=== PATIENT | female | born 1995 | race Caucasian/White ===

== ENCOUNTER → 2019-10-02 | Outpatient (CLI) | payer OTHER ==
--- NOTE | 2019-10-02 12:45 | US ---
EXAMINATION TYPE: Transabdominal DATE OF EXAM: 10/02/2019 12:15 PM COMPARISON: NONE CLINICAL HISTORY: Z36 CONFIRM DATES. Confirm dates, pt has no complaints at this time EXAM PERFORMED: Transabdominal (TA) EXAM MEASUREMENTS: GESTATIONAL AGE / DATING Physician Established: (9 weeks/5 days) EDC: 05/01/2020 Dates by LMP: (9 weeks/5 days) EDC: 05/01/2020 Dates by First Scan: No prior Dates by Current Scan for: (7 weeks/4 days) EDC: 05/16/2020 MATERNAL ANATOMY Uterus: 9.6 x 4.9 x 7.1 cm Right Ovary: 2.7 x 1.7 x 2.6 cm Left Ovary: 2.4 x 1.5 x 2.3 cm Post CDS / Adnexa: wnl Presence of free fluid: No Presence of corpus luteal cyst: Left Ovary= 1.7 x 1.1 x 1.7 cm GESTATION / SURVEY CRL: 1.3 cm (7 weeks/4 days) Yolk Sac (normal less than 6mm): Not visualized No heart tones detected IUP: Demise Single gestation with no heart tones detected consistent with probable demise Results called to Dr. Richardson at time of exam IMPRESSION: Findings compatible with demise as noted above. Correlate with serial beta hCG and/or ultrasoun d.
== END | disposition home or self-care (01) ==
LOC: RADUSWWP 11:58
PROVIDERS: ATTEND Obstetrics & Gynecology
DX: Z36.9 Encounter for antenatal screening, unspecified (principal)
CPT/HCPCS: 76801

== ENCOUNTER 2019-10-05 02:12 | Emergency (ER) | payer OTHER ==
[2019-10-05 02:27] VITALS: RESP 16; TEMP 98.6
[2019-10-05] MEDS ORDERED: ONDANSETRON 4 MG/2 ML VIAL IVP STA (02:47)
[2019-10-05] MEDS ORDERED: LORazepam 2 MG/ML INJ IV STA (02:47)
[2019-10-05] MEDS ORDERED: HYDROmorphone 0.5 MG/0.5 ML SYRINGE IVP STA ×2 (02:47→03:07)
[2019-10-05] MEDS ORDERED: SODIUM CHLORIDE 0.9% 1,000 ML IV ONE (02:47)
[2019-10-05 02:54] LABS: Basophils # (A) 0.1 k/uL (0-0.2); Basophils % (A) 0 %; Eosinophils # (A) 0.2 k/uL (0-0.7); Eosinophils % (A) 1 %; HCT 36.5 % (34.0-46.0); HGB 11.6 gm/dL (11.4-16.0); Lymphocytes # (A) 2.2 k/uL (1.0-4.8); Lymphocytes % (A) 15 %; MCH 30.2 pg (25.0-35.0); MCHC 31.8 g/dL (31.0-37.0); MCV 94.9 fL (80.0-100.0); Monocytes # (A) 0.8 k/uL (0-1.0); Monocytes % (A) 6 %; Neutrophils # (A) 11.2 k/uL (1.3-7.7); Neutrophils % (A) 76 %; Platelet Count 211 k/uL (150-450); RBC 3.84 m/uL (3.80-5.40); RDW 13.5 % (11.5-15.5); WBC 14.7 k/uL (3.8-10.6)
[2019-10-05 03:02] LABS: INR 0.9 (<1.2); Partial Thromboplastin Time 22.6 sec (22.0-30.0); Prothrombin Time 9.6 sec (9.0-12.0)
[2019-10-05 03:03] LABS: ALT 24 U/L (4-34); AST 26 U/L (14-36); African American GFR (CKD) >90 (>60 ml/min/1.73 sqM); Albumin 4.5 g/dL (3.5-5.0); Alkaline Phosphatase 43 U/L (38-126); Anion Gap 10 mmol/L; Blood Urea Nitrogen 14 mg/dL (7-17); Calcium 9.8 mg/dL (8.4-10.2); Carbon Dioxide 23 mmol/L (22-30); Chloride 105 mmol/L (98-107); Glucose 94 mg/dL (74-99); Non-African American GFR(CKD) >90 (>60 ml/min/1.73 sqM); Potassium 3.9 mmol/L (3.5-5.1); Sodium 138 mmol/L (137-145); Total Bilirubin <0.1 mg/dL (0.2-1.3); Total Protein 7.6 g/dL (6.3-8.2)
[2019-10-05] MEDS ORDERED: KETOROLAC 30 MG/ML 1 ML VIAL IVP STA (03:07)
--- NOTE | 2019-10-05 03:45 | ED ---
General Adult HPI - General Source: patient Mode of arrival: ambulatory Limitations: no limitations <Vivian Hazel - Last Filed: 10/05/19 04:29> <Mekhi Jones - Last Filed: 10/05/19 04:38> - General Chief complaint: Vaginal Bleeding Stated complaint: 7wks Miscarriage Time Seen by Provider: 10/05/19 02:27 - History of Present Illness Initial comments: 24-year-old female patient presents to the emergency department today for evaluation of pelvic pain and heavy vaginal bleeding. Patient states that she had ultrasound to evaluate her on Monday, she would've been around 9 weeks gestation, ultrasound measured demise at 7 weeks 4 days. Patient states her hCG at that time was around 7000. Patient is G2 with one elective at age 18. Patient states that she's been having some mild vaginal bleeding since her ultrasound. States that this evening the bleeding became much heavier, she soaked through 3 pads in 1 hour. States she is passing large clots. States that her pain became severe, radiating through to her back. Patient is also reporting some dizziness. Denies any urinary symptoms. Denies any nausea or vomiting. Patient denies any recent rash, shortness breath, chest pain, nausea, vomiting, diarrhea, constipation, numbness, tingling, dysuria, urinary urgency, urinary frequency, headache, visual changes, or any other complaints. (Vivian Hazel) - Related Data Allergies Allergy/AdvReac Type Severity Reaction Status Date / Time No Known Allergies Allergy Verified 10/05/19 02:26 Review of Systems ROS Other: All systems not noted in ROS Statement are negative. <Vivian Hazel - Last Filed: 10/05/19 04:29> ROS Other: All systems not noted in ROS Statement are negative. <Mekhi Jones - Last Filed: 10/05/19 04:38> ROS Statement: Those systems with pertinent positive or pertinent negative responses have been documented in the HPI. Past Medical History Past Medical History: No Reported History History of Any Multi-Drug Resistant Organisms: None Reported Past Surgical History: No Surgical Hx Reported Past Psychological History: No Psychological Hx Reported Smoking Status: Current every day smoker Past Alcohol Use History: None Reported Past Drug Use History: None Reported <Vivian Hazel - Last Filed: 10/05/19 04:29> General Exam Limitations: no limitations General appearance: alert, in distress (Related to pain), other (Physical well- developed, well-nourished adult female patient in no acute distress. Vital signs upon presentation are temperature 98.6F, pulse 68, respirations 16, blood pressure 133/86, pulse ox 100% on room air.) Respiratory exam: Present: normal lung sounds bilaterally. Absent: respiratory distress, wheezes, rales, rhonchi, stridor Cardiovascular Exam: Present: regular rate, normal rhythm, normal heart sounds. Absent: systolic murmur, diastolic murmur, rubs, gallop, clicks GI/Abdominal exam: Present: soft, tenderness (Lower abdominal), normal bowel sounds. Absent: distended, guarding, rebound, rigid External exam: Present: normal external exam Speculum exam: Present: vaginal bleeding (moderate vaginal bleeding), tissue (noted in the cervical os, some tissue removed. ) Neurological exam: Present: alert, oriented X3, CN II-XII intact Psychiatric exam: Present: normal affect, normal mood Skin exam: Present: warm, dry, intact, normal color. Absent: rash <Vivian Hazel - Last Filed: 10/05/19 04:29> Course Vital Signs 10/05/19 02:23 Temperature 98.6 F Pulse Rate 68 Respiratory 16 Rate Blood Pressure 133/86 O2 Sat by Pulse 100 Oximetry Medical Decision Making - Lab Data Result diagrams: 10/05/19 02:46 10/05/19 02:46 <Vivian Hazel - Last Filed: 10/05/19 04:29> - Lab Data Result diagrams: 10/05/19 02:46 10/05/19 02:46 <Mekhi Jones - Last Filed: 10/05/19 04:38> - Medical Decision Making 24-year-old female patient presented to the emergency department today for evaluation of heavy vaginal bleeding and severe abdominal pain. She is G2 with elective at age 18. Physical examination did reveal some suprapubic abdominal tenderness. Upon initial evaluation patient was quite uncomfortable. She was given IV fluids, Dilaudid, and Ativan. Once patient was resting more comfortably pelvic examination was performed, with initial insertion of the speculum there was release of a large amount of bright red blood. Once cleared there was tissue noted protruding from the cervical os. This was removed. There is additional tissue noted in the cervical os, removal was unsuccessful. Patient tolerated the procedure well. Tissue sample will be sent. At this time patient is resting comfortably, rating her pain at a 2/10. Bleeding has diminished. Dr. Turner was consulted by my attending Dr. Jones. Patient will be discharged home with pain medication. She is instructed to contact Dr. Otoole on Monday for further instruction. She does have an ultrasound scheduled for 10/10/19. We did discuss return parameters in detail including heavy bleeding and increased pain. She verbalizes understanding and agrees with this plan. (Vivian Hazel) I saw this patient in conjunction with the physician automotive service assistant. I performed independent history and physical exam. Agree with case management. (Mekhi Jones) - Lab Data Lab Results 10/05/19 10/05/19 10/05/19 Range/Units 02:46 02:46 02:46 WBC 14.7 H (3.8-10.6) k/uL RBC 3.84 (3.80-5.40) m/uL Hgb 11.6 (11.4-16.0) gm/dL Hct 36.5 (34.0-46.0) % MCV 94.9 (80.0-100.0) fL MCH 30.2 (25.0-35.0) pg MCHC 31.8 (31.0-37.0) g/dL RDW 13.5 (11.5-15.5) % Plt Count 211 (150-450) k/uL Neutrophils % 76 % Lymphocytes % 15 % Monocytes % 6 % Eosinophils % 1 % Basophils % 0 % Neutrophils # 11.2 H (1.3-7.7) k/uL Lymphocytes # 2.2 (1.0-4.8) k/uL Monocytes # 0.8 (0-1.0) k/uL Eosinophils # 0.2 (0-0.7) k/uL Basophils # 0.1 (0-0.2) k/uL PT 9.6 (9.0-12.0) sec INR 0.9 (<1.2) APTT 22.6 (22.0-30.0) sec Sodium 138 (137-145) mmol/L Potassium 3.9 (3.5-5.1) mmol/L Chloride 105 (98-107) mmol/L Carbon Dioxide 23 (22-30) mmol/L Anion Gap 10 mmol/L BUN 14 (7-17) mg/dL Creatinine 0.75 (0.52-1.04) mg/dL Est GFR (CKD-EPI)AfAm >90 (>60 ml/min/1.73 sqM) Est GFR (CKD-EPI)NonAf >90 (>60 ml/min/1.73 sqM) Glucose 94 (74-99) mg/dL Calcium 9.8 (8.4-10.2) mg/dL Total Bilirubin <0.1 L (0.2-1.3) mg/dL AST 26 (14-36) U/L ALT 24 (4-34) U/L Alkaline Phosphatase 43 (38-126) U/L Total Protein 7.6 (6.3-8.2) g/dL Albumin 4.5 (3.5-5.0) g/dL HCG, Quant mIU/mL Blood Type Blood Type Recheck Bld Type Recheck Status 10/05/19 10/05/19 Range/Units 02:46 02:46 WBC (3.8-10.6) k/uL RBC (3.80-5.40) m/uL Hgb (11.4-16.0) gm/dL Hct (34.0-46.0) % MCV (80.0-100.0) fL MCH (25.0-35.0) pg MCHC (31.0-37.0) g/dL RDW (11.5-15.5) % Plt Count (150-450) k/uL Neutrophils % % Lymphocytes % % Monocytes % % Eosinophils % % Basophils % % Neutrophils # (1.3-7.7) k/uL Lymphocytes # (1.0-4.8) k/uL Monocytes # (0-1.0) k/uL Eosinophils # (0-0.7) k/uL Basophils # (0-0.2) k/uL PT (9.0-12.0) sec INR (<1.2) APTT (22.0-30.0) sec Sodium (137-145) mmol/L Potassium (3.5-5.1) mmol/L Chloride (98-107) mmol/L Carbon Dioxide (22-30) mmol/L Anion Gap mmol/L BUN (7-17) mg/dL Creatinine (0.52-1.04) mg/dL Est GFR (CKD-EPI)AfAm (>60 ml/min/1.73 sqM) Est GFR (CKD-EPI)NonAf (>60 ml/min/1.73 sqM) Glucose (74-99) mg/dL Calcium (8.4-10.2) mg/dL Total Bilirubin (0.2-1.3) mg/dL AST (14-36) U/L ALT (4-34) U/L Alkaline Phosphatase (38-126) U/L Total Protein (6.3-8.2) g/dL Albumin (3.5-5.0) g/dL HCG, Quant 5362.1 mIU/mL Blood Type O Positive Blood Type Recheck No Previous Record Bld Type Recheck Status [facility] ONLY Disposition Is patient prescribed a controlled substance at d/c from ED?: No Time of Disposition: 04:33 <Vivian Hazel - Last Filed: 10/05/19 04:29> <Mekhi Jones - Last Filed: 10/05/19 04:38> Clinical Impression: Miscarriage Disposition: HOME SELF-CARE Condition: Good Instructions (If sedation given, give patient instructions): Miscarriage (ED) Additional Instructions: Increase fluids. Rest. Take medications as directed. Follow up with Dr. Otoole for further evaluation as soon as possible. Return for increased bleeding or severe pain. Return for any other new, worsening, or concerning symptoms. Referrals: Darling Otoole DO [Doctor of Osteopathic Medicine] - 1-2 days
[2019-10-05] MEDS ORDERED: ACET/COD 300 MG/30 MG STARTER PACK 6 TAB BTL PO STA (04:35)
[2019-10-05] MEDS ORDERED: IBUPROFEN 600 MG STARTER PACK 4 TAB BTL PO STA (04:36)
[2019-10-05 04:42] VITALS: BP 114/64; PULSE 71
--- NOTE | 2019-10-08 05:21 | CDI ---
Dear Vivian Hazel [facility]-: Please do addendum clarification whether Dilation and Curettage was performed in this visit, if yes please provide procedure note. Thank You, Bradford Lopez, Internet Marketing Strategist. If you have any questions, please contact Protection Mgr at [phone] [facility]
== END 2019-10-05 04:52 | disposition home or self-care (01) ==
LOC: EC 02:12
DX: O03.9 Complete or unspecified spontaneous abortion without complication (principal); O99.331 Smoking (tobacco) complicating pregnancy, first trimester; F17.200 Nicotine dependence, unspecified, uncomplicated; Z87.59 Personal history of other complications of pregnancy, childbirth and the puerperium; Z3A.01 Less than 8 weeks gestation of pregnancy
CPT/HCPCS: 99284; 96374; 96375 ×3; 96361; 36415; 86900; 86901; 88305; 80053; 85025; 85610; 85730; 84702; J2060; J2405; J1885; J1170

== ENCOUNTER → 2019-10-11 | Outpatient (CLI) | payer OTHER ==
--- NOTE | 2019-10-11 09:19 | US ---
EXAMINATION TYPE: Transabdominal DATE OF EXAM: 10/11/2019 9:01 AM COMPARISON: US 10/02/2019 CLINICAL HISTORY: Z36 Previous abnormal ultra sound. demise seen on previous, patient states bl eeding stopped 3 days ago. EXAM PERFORMED: Transabdominal (TA) EXAM MEASUREMENTS: GESTATIONAL AGE / DATING Dates by First Scan: demise Dates by Current Scan for: No IUP seen at this time MATERNAL ANATOMY Uterus: 6.2 x 4.2 x 4.6cm, anteverted, endometrium wnl Right Ovary: 2.5 x 1.5 x 1.7cm Left Ovary: 2.4 x 1.2 x 1.6cm Post CDS / Adnexa: wnl Presence of free fluid: no Endometrium: 0.7 cm GESTATION / SURVEY IUP: No IUP seen at this time Date of LMP: 07/28/2019 Beta HcG (if available): Not available at time of exam IMPRESSION: No intrauterine seen. Endometrial thickness is now within normal limits. No sonographic con cern for retained products of conception.
== END | disposition home or self-care (01) ==
LOC: RADUSWWP 08:44
PROVIDERS: ATTEND Obstetrics & Gynecology
DX: Z36.2 Encounter for other antenatal screening follow-up (principal)
CPT/HCPCS: 76801

== ENCOUNTER 2019-11-05 05:34 | Emergency (ER) | payer OTHER ==
[2019-11-05 05:41] VITALS: BP 146/79; PULSE 60; RESP 18; TEMP 97.7
[2019-11-05] MEDS ORDERED: SODIUM CHLORIDE 0.9% 1,000 ML IV STA (05:44)
[2019-11-05 06:02] LABS: Appearance,Urine Turbid (Clear); Bacteria,Urine Many /hpf; Bilirubin,Urine Negative (Negative); Blood,Urine Small (Negative); Color,Urine Yellow; Glucose,Urine (UA) Negative (Negative); Ketones,Urine Negative (Negative); Leukocyte Esterase,Urine Small (Negative); Mucus,Urine Few /hpf; Nitrite,Urine Negative (Negative); PH, Urine 5.5 (5.0-8.0); Protein,Urine 1+ (Negative); RBC,Urine 16 /hpf (0-5); Specific Gravity,Urine 1.031 (1.001-1.035); Squamous Epithelial Cell,Urine 23 /hpf (0-4); Urobilinogen,Urine <2.0 mg/dL (<2.0); WBC,Urine 22 /hpf (0-5)
[2019-11-05] MEDS ORDERED: MORPHINE SULFATE 4 MG/ML SYRINGE IVP STA (06:04)
[2019-11-05] MEDS ORDERED: ONDANSETRON 4 MG/2 ML VIAL IVP STA (06:04)
[2019-11-05 06:18] LABS: Basophils # (A) 0.1 k/uL (0-0.2); Basophils % (A) 1 %; Eosinophils # (A) 0.3 k/uL (0-0.7); Eosinophils % (A) 3 %; HCT 35.7 % (34.0-46.0); HGB 11.7 gm/dL (11.4-16.0); Lymphocytes # (A) 2.6 k/uL (1.0-4.8); Lymphocytes % (A) 32 %; MCH 30.5 pg (25.0-35.0); MCHC 32.7 g/dL (31.0-37.0); MCV 93.4 fL (80.0-100.0); Mean Platelet Volume 9.3; Monocytes # (A) 0.5 k/uL (0-1.0); Monocytes % (A) 6 %; Neutrophils # (A) 4.6 k/uL (1.3-7.7); Neutrophils % (A) 55 %; Platelet Count 179 k/uL (150-450); RBC 3.83 m/uL (3.80-5.40); RDW 13.6 % (11.5-15.5); WBC 8.3 k/uL (3.8-10.6)
--- NOTE | 2019-11-05 06:28 | ED ---
Abdominal Pain HPI - General Chief Complaint: Abdominal Pain Stated Complaint: Pelvic Cramping Time Seen by Provider: 11/05/19 05:44 Source: patient Mode of arrival: ambulatory Limitations: no limitations - History of Present Illness Initial Comments: Cleopatra is a 24-year-old female presents the ER today for evaluation of right lower quadrant abdominal pain and dysuria. Patient reports symptoms woke her from sleep at a been persistent for a number of hours. Patient reports a stabbing pain in her right lower pelvis with associated nausea but no vomiting. No change in bowel habits. No recent illness. 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 Patient does report a history of ovarian cysts but reports this pain is different. She denies any history of kidney stones or known family history of kidney stones. She has not had a menstrual cycle since her miscarriage. - Related Data Previous Rx's Medication Instructions Recorded Ondansetron [Zofran ODT] 4 mg PO Q8HR #12 tab 11/05/19 Tamsulosin [Flomax] 0.4 mg PO DAILY #7 cap 11/05/19 Allergies Allergy/AdvReac Type Severity Reaction Status Date / Time No Known Allergies Allergy Verified 10/05/19 02:26 Review of Systems ROS Statement: Those systems with pertinent positive or pertinent negative responses have been documented in the HPI. ROS Other: All systems not noted in ROS Statement are negative. Past Medical History Past Medical History: No Reported History Additional Past Medical History / Comment(s): miscarrige 2019. History of Any Multi-Drug Resistant Organisms: None Reported Past Surgical History: No Surgical Hx Reported Past Psychological History: No Psychological Hx Reported Smoking Status: Never smoker Past Alcohol Use History: None Reported Past Drug Use History: None Reported General Exam - General Exam Comments Initial Comments: Physical Exam GENERAL: Patient is well-developed and well-nourished. Patient is nontoxic and well- hydrated and is in no distress. HENT: Normocephalic, Atraumatic. EYES: PERRL, EOMI PULMONARY: Unlabored respirations. No audible rales rhonchi or wheezing was noted. CARDIOVASCULAR: There is a regular rate and rhythm without any murmurs gallops or rubs. ABDOMEN: Soft Mild tenderness to palpation right lower quadrant no tenderness to percussion of the right flank SKIN: Skin is clear with no lesions or rashes and otherwise unremarkable. : Deferred NEUROLOGIC: Patient is alert and oriented x3. Moving all extremities spontaneously MUSCULOSKELETAL: Normal extremities with adequate strength and full range of motion. No lower extremity swelling or edema. No calf tenderness. PSYCHIATRIC: Normal psychiatric evaluation. Limitations: no limitations Course Vital Signs 11/05/19 05:35 Temperature 97.7 F Pulse Rate 60 Respiratory 18 Rate Blood Pressure 146/79 O2 Sat by Pulse 100 Oximetry Medical Decision Making - Medical Decision Making The patient was seen and evaluated, history is obtained from the patient Emergent bedside ultrasound was performed and revealed no free fluid in the abdomen which would be concerning for a ruptured ectopic given the patient's history of recent miscarriage Labs were obtained patient was given morphine and Zofran with minimal improvement in her pain Labs resulted with elevated BUN and creatinine concerning for likely instructive kidney stone Computed tomography scan was ordered Toradol was ordered She was reevaluated and was sleeping comfortably after Toradol reported complete resolution of her pain, computed tomography scan did result with a small right UVJ stone, patient was comfortable with discharge home and supportive care. - Lab Data Result diagrams: 11/05/19 05:58 11/05/19 05:58 Lab Results 11/05/19 11/05/19 11/05/19 Range/Units 05:47 05:58 05:58 WBC 8.3 (3.8-10.6) k/uL RBC 3.83 (3.80-5.40) m/uL Hgb 11.7 (11.4-16.0) gm/dL Hct 35.7 (34.0-46.0) % MCV 93.4 (80.0-100.0) fL MCH 30.5 (25.0-35.0) pg MCHC 32.7 (31.0-37.0) g/dL RDW 13.6 (11.5-15.5) % Plt Count 179 (150-450) k/uL Neutrophils % 55 % Lymphocytes % 32 % Monocytes % 6 % Eosinophils % 3 % Basophils % 1 % Neutrophils # 4.6 (1.3-7.7) k/uL Lymphocytes # 2.6 (1.0-4.8) k/uL Monocytes # 0.5 (0-1.0) k/uL Eosinophils # 0.3 (0-0.7) k/uL Basophils # 0.1 (0-0.2) k/uL Sodium 138 (137-145) mmol/L Potassium 3.7 (3.5-5.1) mmol/L Chloride 103 (98-107) mmol/L Carbon Dioxide 24 (22-30) mmol/L Anion Gap 11 mmol/L BUN 18 H (7-17) mg/dL Creatinine 1.08 H (0.52-1.04) mg/dL Est GFR (CKD-EPI)AfAm 83 (>60 ml/min/1.73 sqM) Est GFR (CKD-EPI)NonAf 72 (>60 ml/min/1.73 sqM) Glucose 98 (74-99) mg/dL Calcium 10.0 (8.4-10.2) mg/dL Total Bilirubin 0.3 (0.2-1.3) mg/dL AST 26 (14-36) U/L ALT 23 (4-34) U/L Alkaline Phosphatase 53 (38-126) U/L C-Reactive Protein <5.0 (<10.0) mg/L Total Protein 7.8 (6.3-8.2) g/dL Albumin 4.7 (3.5-5.0) g/dL HCG, Quant <2.4 mIU/mL Urine Color Yellow Urine Appearance Turbid H (Clear) Urine pH 5.5 (5.0-8.0) Ur Specific [place] 1.031 (1.001-1.035) Urine Protein 1+ H (Negative) Urine Glucose (UA) Negative (Negative) Urine Ketones Negative (Negative) Urine Blood Small H (Negative) Urine Nitrite Negative (Negative) Urine Bilirubin Negative (Negative) Urine Urobilinogen <2.0 (<2.0) mg/dL Ur Leukocyte Esterase Small H (Negative) Urine RBC 16 H (0-5) /hpf Urine WBC 22 H (0-5) /hpf Ur Squamous Epith Cells 23 H (0-4) /hpf Urine Bacteria Many H (None) /hpf Urine Mucus Few H (None) /hpf Disposition Clinical Impression: Flank pain Disposition: HOME SELF-CARE Condition: Stable Additional Instructions: Follow up with your primary doctor within 2-3 days. Follow up with a Urologist this week (we will give you a list of urologists, but make sure they accept your insurance). ?Please call as soon as possible for an appointment. 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 Use Motrin (also called Ibuprofen or Advil) 400-800 mg every 6 hours as needed for pain. Take this with food, if you have any stomach discomfort while taking Motrin, you can use TUMS to help. Drink plenty of fluids, avoid caffeine & alcohol. Please continue taking your home medications as directed. Do not use alcohol when taking any medication (especially antibiotics, tylenol or other pain medication) unless you check with the doctor or pharmacist. Any worsening pain, fever, chills, difficulty urinating, or any other concerns, please see your doctor immediately or return to Emergency Department right away. Prescriptions: Tamsulosin [Flomax] 0.4 mg PO DAILY #7 cap Ondansetron [Zofran ODT] 4 mg PO Q8HR #12 tab Is patient prescribed a controlled substance at d/c from ED?: No Referrals: Fany Saenz MD [Primary Care Provider] - 1-2 days
[2019-11-05 06:29] LABS: ALT 23 U/L (4-34); AST 26 U/L (14-36); African American GFR (CKD) 83 (>60 ml/min/1.73 sqM); Albumin 4.7 g/dL (3.5-5.0); Alkaline Phosphatase 53 U/L (38-126); Anion Gap 11 mmol/L; Blood Urea Nitrogen 18 mg/dL (7-17); C Reactive Protein <5.0 mg/L (<10.0); Carbon Dioxide 24 mmol/L (22-30); Chloride 103 mmol/L (98-107); Glucose 98 mg/dL (74-99); Non-African American GFR(CKD) 72 (>60 ml/min/1.73 sqM); Potassium 3.7 mmol/L (3.5-5.1); Sodium 138 mmol/L (137-145); Total Bilirubin 0.3 mg/dL (0.2-1.3); Total Protein 7.8 g/dL (6.3-8.2)
[2019-11-05 06:43] LABS: HCG,Quantitative Serum <2.4 mIU/mL
[2019-11-05] MEDS ORDERED: KETOROLAC 30 MG/ML 1 ML VIAL IVP STA (07:04)
[2019-11-05] MEDS ORDERED: ACET/COD 300 MG/30 MG STARTER PACK 6 TAB BTL PO STA (07:22)
--- NOTE | 2019-11-05 07:26 | CT ---
EXAMINATION TYPE: CT renal stones wo con DATE OF EXAM: 11/05/2019 COMPARISON: None INDICATION: right flank pain DLP: 344.4 mGycm, Automated exposure control for dose reduction was used. CONTRAST: 0 mL of Isovue 300. Study performed without Oral Contrast TECHNIQUE: Axial images were obtained from above the diaphragm to the pubic rami in the axial plane a t 5 mm thick sections. Reconstructed images are reviewed on the computer in the coronal plane. FINDINGS: Limited CT sections are obtained the lung bases. The lung bases are clear. CT ABDOMEN: Liver: Normal Spleen: Normal Pancreas: Normal Adrenal glands: The adrenal glands are normal. Gallbladder: Normal Kidneys: No masses are evident. There is mild right hydronephrosis. No cysts are present. Study is w ithout intravenous contrast causing limitation. There is a punctate renal stone on the left inferior pole measuring 0.3 cm. Within the proximal right hemipelvis there is a 0.6 cm area of increased density. This appears somewh at tubular and could be contrast within the appendix. There is a punctate high density structure near the inferior right lateral decompressed urinary bladder. Distal ureteral stone may be present. This would measure 0.3 cm. Series 202 image 44. A definitive renal or ureteral stone is not otherwise iden tified. Aorta: Normal Inferior vena cava: Normal. CT PELVIS: Loops of bowel within the abdomen and pelvis are normal. Study is without oral contrast limiting bowel evaluation. Appendix: Normal as visualized. The insertion of the cecum is not clearly identified. This extends to wards the midline and posterior. Adjacent inflammatory changes are dilatation is not identified. As d iscussed above there is some tubular increased density felt to be some contrast within the appendix. Calcification and appendicolith could be considered. Urinary bladder: Decompressed and cannot be evaluated Genitourinary structures: Uterus is normal. Adnexal regions appear unremarkable. No free fluid is wit hin the pelvis. Osseous structures: No suspicious lytic or sclerotic lesions. IMPRESSIONS: 1. There may be a punctate 0.3 cm calcification near the expected region of the insertion of the rig ht ureter on the bladder at the ureterovesical junction. 2. Mild hydronephrosis and proximal right hydroureter. 3. Suspected contrast or appendicolith within the midline appendix. 4. Nonobstructing 0.3 cm inferior pole left renal stone.
== END 2019-11-05 07:49 | disposition home or self-care (01) ==
LOC: EC 05:34
DX: R10.2 Pelvic and perineal pain (principal); R79.89 Other specified abnormal findings of blood chemistry; R30.0 Dysuria; R11.0 Nausea; Z87.59 Personal history of other complications of pregnancy, childbirth and the puerperium; Z87.42 Personal history of other diseases of the female genital tract
CPT/HCPCS: 36415; 80053; 85025; 86140; 81001; 84702; 87086; 74150; 99284; 96374; 96375 ×2; 96361; J2270; J2405; J1885

== ENCOUNTER → 2020-03-02 | Outpatient (CLI) | payer OTHER ==
--- NOTE | 2020-03-03 06:56 | US ---
EXAMINATION TYPE: US pelvic complete DATE OF EXAM: 03/02/2020 COMPARISON: 10/11/2019 CLINICAL HISTORY: N97.9 Female infertility. TECHNIQUE: Transabdominal (TA). Date of LMP: October 2019 EXAM MEASUREMENTS: Uterus: 7.4 x 2.5 x 3.9 cm Endometrial Stripe: 1.0 cm Right Ovary: 3.3 x 3.5 x 1.2 cm Left Ovary: 3.2 x 2.1x 1.2 cm 1. Uterus: Anteverted wnl 2. Endometrium: measures 1.0 cm, no cycles since October 2019 3. Right Ovary: wnl 4. Left Ovary: wnl 5. Bilateral Adnexa: wnl 6. Posterior cul-de-sac: No free fluid IMPRESSION: No distinct abnormality appreciated.
== END | disposition home or self-care (01) ==
LOC: RADUSWWP 16:27
PROVIDERS: ATTEND Internal Medicine
DX: N97.9 Female infertility, unspecified (principal)
CPT/HCPCS: 76856

== ENCOUNTER → 2020-05-18 | Outpatient (CLI) | payer OTHER ==
--- NOTE | 2020-05-19 07:40 | US ---
EXAMINATION TYPE: Transabdominal DATE OF EXAM: 05/18/2020 4:42 PM COMPARISON: NONE CLINICAL HISTORY: Z36 CONFIRM DATES. EXAM PERFORMED: Transabdominal (TA) EXAM MEASUREMENTS: GESTATIONAL AGE / DATING Physician Established: Not yet established Dates by LMP: Does not correlate Dates by First Scan: No previous this is first scan Dates by Current Scan for: (11 weeks/1 days) EDC: 12/12/2020 MATERNAL ANATOMY Uterus: 11.5 x 6.3 x 7.5 cm Right Ovary: 2.5 x 1.1 x 1.0 cm Left Ovary: 1.8 x 2.0 x 0.9 cm Post CDS / Adnexa: wnl Presence of free fluid: No Presence of corpus luteal cyst: wnl Presence of subchorionic bleed: no GESTATION / SURVEY CRL: 4.2 cm (11 weeks/1 days) Yolk Sac (normal less than 6mm): 3 mm Heart Rate: 170 bpm Rhythm: Normal IUP: Viable IUP Date of LMP: Does not correlate Beta HcG (if available): Not available at this time IMPRESSION: Viable IUP with an MILTON of 12/06/2020 by this exam
== END | disposition home or self-care (01) ==
LOC: RADUSWWP 16:25
PROVIDERS: ATTEND Obstetrics & Gynecology
DX: Z36.9 Encounter for antenatal screening, unspecified (principal); Z3A.11 11 weeks gestation of pregnancy
CPT/HCPCS: 76801

== ENCOUNTER 2020-11-11 13:23 | Outpatient (CLI) | payer OTHER ==
[2020-11-11] MEDS ORDERED: ONDANSETRON 4 MG/2 ML VIAL IM STA (14:10)
[2020-11-11] MEDS ORDERED: LACTATED RINGERS 1,000 ML IV SCH (14:15)
[2020-11-11] MEDS ORDERED: ONDANSETRON 4 MG/2 ML VIAL IVP STA (14:43)
[2020-11-11 14:53] LABS: Appearance,Urine Clear (Clear); Bilirubin,Urine Negative (Negative); Blood,Urine Negative (Negative); Color,Urine Yellow; Glucose,Urine (UA) Negative (Negative); Ketones,Urine Negative (Negative); Leukocyte Esterase,Urine Negative (Negative); Nitrite,Urine Negative (Negative); PH, Urine 5.5 (5.0-8.0); Protein,Urine Negative (Negative); Specific Gravity,Urine 1.005 (1.001-1.035); Urobilinogen,Urine <2.0 mg/dL (<2.0)
[2020-11-11 15:16] VITALS: BP 125/74; PULSE 90; RESP 18; TEMP 97.5
--- NOTE | 2020-11-11 16:17 | P.MSEPDOC ---
Presenting Problems - Arrival Data Date of Arrival on Unit: 11/11/20 Time of Arrival on Unit: 13:30 Mode of Transport: Ambulatory - Complaint OB-Reason for Admission/Chief Complaint: Other Comment: nausea/vomitting, pos. covid Medical History - Information : 1 Para: 0 Term: 0 : 0 Abortions: Spontaneous or Elective: 0 Number of Living Children: 0 - Gestational Age Gestational Age by MILTON (wks/days): 36 Weeks and 0 Days Review of Systems - Review of Systems Constitutional: No problems Breast: No problems ENT: No problems Cardiovascular: No problems Respiratory: No problems Gastrointestinal: No problems Genitourinary: No problems Musculoskeletal: No problems Neurological: No problems Skin: No problems Comment: nausea/vomitting Vital Signs - Temperature Temperature: 97.5 F Temperature Source: Temporal Artery Scan - Pulse Right Brachial Pulse Rate: 90 Pulse Assessment Method: Pulse Oximetry - Respirations Respiratory Rate: 18 Oxygen Delivery Method: Room Air O2 Sat by Pulse Oximetry: 97 - Blood Pressure Right Arm Blood Pressure: 125/74 Blood Pressure Mean: 91 Blood Pressure Source: Automatic Cuff Medical Screen Scoring (Pre) - Cervical Exam Dilation: Exam Deferred - Uterine Contractions Frequency: > 5 minutes apart = 1 Duration: > 40 seconds = 2 Intensity: N/A - Maternal Vital Signs Maternal Temperature: N/A Maternal Blood Pressure: N/A Signs of Preeclampsia: N/A Maternal Respirations: N/A - Maternal Trauma Maternal Trauma: N/A - Assessment - Baby A Baseline FHR: 135 Heart Rate - NICHD Category: Category I (Normal) = 0 NST: Reactive - Total Score - Baby A Total Score - Baby A: 3 - Total Score - Baby B Total Score - Baby B: 3 - Total Score - Baby C Total Score - Baby C: 3 - Level of Risk - Baby A Level of Risk - Baby A: Low (0-5) - Level of Risk - Baby B Level of Risk - Baby B: Low (0-5) - Level of Risk - Baby C Level of Risk - Baby C: Low (0-5) Physician Notification (Pre) - Physician Notified Physician Notified Date: 11/11/20 Physician Notified Time: 13:45 New Order Received: Yes - Notification Comment Comment: iv lr, zofran, vag exam, urinalysis Disposition - Disposition OB Disposition: Observe I agree with the RN Medical Screening Exam: Yes Case reviewed; plan agreed upon as documented in EMR&OBIX.: Yes Diagnosis: NAUSEA WITH VOMITING, UNSPECIFIED Additional Diagnoses: COVID-19 infection
== END 2020-11-11 17:00 | disposition home or self-care (01) ==
LOC: FBPOP 13:23
PROVIDERS: ATTEND Obstetrics & Gynecology
DX: O98.513 Other viral diseases complicating pregnancy, third trimester (principal); U07.1 COVID-19; R11.2 Nausea with vomiting, unspecified; Z3A.36 36 weeks gestation of pregnancy
CPT/HCPCS: 59025; 96361; 96374; 81003; G0463; J2405; 96360; 99214

== ENCOUNTER 2020-12-02 18:52 | Inpatient (IN) | payer OTHER ==
[2020-12-02] MEDS: LACTATED RINGERS 1,000 ML IV SCH ×2 (19:20→23:40)
[2020-12-02] MEDS ORDERED: OXYTOCIN 10 UNIT/ML 1 ML VIAL IM PRN (19:23)
[2020-12-02] MEDS ORDERED: TERBUTALINE 1 MG/ML VIAL SQ PRN (19:23)
[2020-12-02] MEDS ORDERED: LIDOCAINE 0.5% (PF) 5 MG/ML (50 ML SDV) SQ PRN (19:23)
[2020-12-02] MEDS ORDERED: CARBOPROST TROMETHAMINE 250 MCG/ML 1 ML AMP IM PRN (19:23)
[2020-12-02] MEDS ORDERED: METHYLERGONOVINE 0.2 MG/ML 1 ML AMP IM PRN (19:23)
[2020-12-02] MEDS ORDERED: BUTORPHANOL 1 MG/ML 1 ML VIAL IV PRN (19:24)
[2020-12-02] MEDS ORDERED: OXYTOCIN 30 UNITS/500 ML NS 30 UNIT in SALINE 1 500ML.BAG IV SCH (19:30)
[2020-12-02 20:14] LABS: Anisocytosis Slight; Basophils % (A) 0 %; Eosinophils % (A) 0 %; HCT 33.4 % (34.0-46.0); HGB 10.9 gm/dL (11.4-16.0); Lymphocytes # (A) 2.4 k/uL (1.0-4.8); Lymphocytes % (A) 18 %; MCH 28.4 pg (25.0-35.0); MCHC 32.5 g/dL (31.0-37.0); MCV 87.3 fL (80.0-100.0); Mean Platelet Volume 11.4; Monocytes # (A) 0.6 k/uL (0-1.0); Monocytes % (A) 5 %; Neutrophils # (A) 9.9 k/uL (1.3-7.7); Neutrophils % (A) 75 %; Platelet Count 189 k/uL (150-450); RBC 3.83 m/uL (3.80-5.40); RDW 18.3 % (11.5-15.5); WBC 13.2 k/uL (3.8-10.6)
--- NOTE | 2020-12-02 20:58 | P.HPOB ---
History of Present Illness H&P Date: 12/02/20 Chief Complaint: Contractions This is a 25-year-old female 3 para 0 with an estimated date of confinement of 12/06/2020, estimated gestational age of 39-3/7 weeks, who presents to labor and delivery for complaints of contractions that began yesterday and became stronger today. course had been essentially uncomplicated up until about 35 weeks when she was diagnosed with COVID-19. She was managed as an outpatient and has recovered. She denies any rupture of membranes. She states baby has been very active. labs: Group B streptococcus-negative One hour Glucola-103 Hepatitis B surface antigen-negative RPR-nonreactive Rubella-immune Blood type-O+ Antibody screen-negative Hemoglobin-11.4 Random glucose-80 Obstetrical history: . History of 1 miscarriage and 1 termination of . Gynecologic history: She does have a history of a Pap smear that showed low- grade in 2019. History of chlamydia approximately 4 years ago. 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 Social history: She is single. She is currently unemployed. Review of Systems Constitutional: Denies chills, Denies fever Eyes: denies blurred vision, denies pain Ears, nose, mouth and throat: Denies headache, Denies sore throat Cardiovascular: Denies chest pain, Denies shortness of breath Respiratory: Denies cough Gastrointestinal: Reports abdominal pain Genitourinary: Reports pelvic pain, Reports Musculoskeletal: Reports low back pain Past Medical History Past Medical History: No Reported History Additional Past Medical History / Comment(s): miscarrige 2019. History of Any Multi-Drug Resistant Organisms: None Reported Past Surgical History: No Surgical Hx Reported Past Anesthesia/Blood Transfusion Reactions: No Reported Reaction Past Psychological History: No Psychological Hx Reported Smoking Status: Never smoker Past Alcohol Use History: None Reported Past Drug Use History: None Reported - Past Family History Mother Family Medical History: No Reported History Medications and Allergies Home Medications Medication Instructions Recorded Confirmed Type Acyclovir 800 mg PO MDD 800 mg 11/11/20 History Pnv,Calcium 72/Iron/Folic Acid 1 each PO DAILY MDD 1 tab 11/11/20 12/02/20 History [ Plus Tablet] Allergies Allergy/AdvReac Type Severity Reaction Status Date / Time No Known Allergies Allergy Verified 12/02/20 19:11 Exam Osteopathic Statement: *. No significant issues noted on an osteopathic structural exam other than those noted in the History and Physical/Consult. Vital Signs Temp Pulse Resp BP Pulse Ox 12/02/20 19:22 98.2 F 70 18 132/82 100 12/02/20 19:00 98.2 F 70 17 132/82 Intake and Output 12/02/20 12/02/20 12/02/20 06:59 14:59 22:59 Other: Weight 72.575 kg HEENT: Within normal limits Heart: Regular rate and rhythm Lungs: Clear to auscultation bilaterally Abdomen: heart tones: Category 1, reactive. Contractions: Every 2-3 minutes. Cervix: 6 cm/90%/-2 station with bulging bag. Extremities: Negative Homans Results Result Diagrams: 12/02/20 20:01 Abnormal Lab Results - Last 24 Hours (Table) 12/02/20 Range/Units 20:01 WBC 13.2 H (3.8-10.6) k/uL Hgb 10.9 L (11.4-16.0) gm/dL Hct 33.4 L (34.0-46.0) % RDW 18.3 H (11.5-15.5) % Neutrophils # 9.9 H (1.3-7.7) k/uL Assessment and Plan (1) 39 weeks gestation of Current Visit: Yes Status: Acute Code(s): Z3A.39 - 39 WEEKS GESTATION OF SNOMED Code(s): 95750746 Plan: Admission for active labor. Expectant management. May have epidural if desired.
[2020-12-02] MEDS ORDERED: ROPIVACAINE 100 MG, fentaNYL (PF). 200 MCG in SODIUM CHLORIDE 0.9% 76 ML EPIDURAL ONE (23:50)
[2020-12-03] MEDS: LACTATED RINGERS 1,000 ML IV SCH (05:41)
[2020-12-03] MEDS ORDERED: diphenhydrAMINE 50 MG/ML 1 ML VIAL IVP PRN ×2 (07:31)
[2020-12-03] MEDS ORDERED: HYDROCORTISONE 2.5% RECTAL CREAM 30 GM TUBE RECTAL PRN (07:31)
[2020-12-03] MEDS ORDERED: BENZOCAINE/MENTHOL SPRAY 1 GM/SPRAY AEROSOL TOPICAL PRN (07:31)
[2020-12-03] MEDS ORDERED: ZOLPIDEM 5 MG TAB PO PRN (07:31)
[2020-12-03] MEDS ORDERED: diphenhydrAMINE 25 MG CAP PO PRN (07:31)
[2020-12-03] MEDS ORDERED: OXYTOCIN 30 UNITS/500 ML NS 30 UNIT in SALINE 1 500ML.BAG IV SCH (07:31)
[2020-12-03] MEDS ORDERED: SIMETHICONE 80 MG CHEWABLE PO PRN (07:31)
[2020-12-03] MEDS ORDERED: LANOLIN CREAM 5 GM TUBE TOPICAL PRN (07:31)
[2020-12-03] MEDS ORDERED: diphenhydrAMINE 50 MG CAP PO PRN (07:31)
--- NOTE | 2020-12-03 07:31 | P.PROBDLV ---
Vaginal Delivery Note - . Vaginal Delivery Note: The patient progressed to complete dilation after epidural anesthesia followed by oxytocin augmentation of labor. Once reaching complete dilation, she began pushing. Second trocar. With one further push, the infant's head delivered across the perineum in a left occiput anterior lie with a nuchal posterior arm. The remainder the easily delivered and was placed on mother's abdomen. Nose and mouth were bulb suctioned. Short cord was noted. Cord was clamped and cut and was taken to warmer for evaluation. A viable female infant was noted with scores of 9 at 1 minute and 9 at 5 minutes and weight of 5 lbs. 14 oz. Placenta delivered shortly thereafter, intact, with a three- vessel cord. Uterus contracted well after oxytocin was given and uterine massage was carried out. In section of the perineum revealed 2 small first- degree perineal lacerations on both left and right vaginal introitus. These areas were anesthetized with 1% lidocaine and then sutured with 3-0 Vicryl suture in a running locked fashion. One interrupted stitch of a 2-0 Vicryl suture was also placed. Uterus was cleared of all clots with a gloved hand. Uterus is noted to be firm. Estimated blood loss is approximately 200 mL's. Both mother and infant are in stable condition.
--- NOTE | 2020-12-03 07:32 | P.MSEPDOC ---
Presenting Problems - Arrival Data Date of Arrival on Unit: 12/02/20 Time of Arrival on Unit: 19:13 Mode of Transport: Ambulatory - Complaint OB-Reason for Admission/Chief Complaint: Possible Onset of Labor Comment: contractons 02/13 pain, states started at 0000 yesturday and are 7-8min apart Medical History - Information : 1 Para: 0 Term: 0 : 0 Abortions: Spontaneous or Elective: 0 Number of Living Children: 0 - Gestational Age Gestational Age by MILTON (wks/days): 39 Weeks and 3 Days Review of Systems - Review of Systems Constitutional: No problems Breast: No problems ENT: No problems Cardiovascular: No problems Respiratory: No problems Gastrointestinal: No problems Genitourinary: No problems Musculoskeletal: No problems Neurological: No problems Skin: No problems Vital Signs - Temperature Temperature: 98.2 F Temperature Source: Temporal Artery Scan - Pulse Right Brachial Pulse Rate: 70 Pulse Assessment Method: Automatic Cuff - Respirations Respiratory Rate: 18 Oxygen Delivery Method: Room Air O2 Sat by Pulse Oximetry: 100 - Blood Pressure Right Arm Blood Pressure: 132/82 Blood Pressure Mean: 98 Blood Pressure Source: Automatic Cuff Medical Screen Scoring (Pre) - Cervical Exam Dilation: 4-7 cm = 2 Effacement: More than 50% = 2 Membranes: Intact - Uterine Contractions Frequency: > or = 36 weeks =2 Duration: > 40 seconds = 2 Intensity: Contraction palpated strong = 1 - Maternal Vital Signs Maternal Temperature: N/A Maternal Blood Pressure: N/A Signs of Preeclampsia: N/A Maternal Respirations: N/A - Maternal Trauma Maternal Trauma: N/A - Assessment - Baby A Baseline FHR: 125 Heart Rate - NICHD Category: Category I (Normal) = 0 NST: Reactive Position: N/A Station: N/A - Total Score - Baby A Total Score - Baby A: 9 - Total Score - Baby B Total Score - Baby B: 9 - Total Score - Baby C Total Score - Baby C: 9 - Level of Risk - Baby A Level of Risk - Baby A: Medium (6-9) - Level of Risk - Baby B Level of Risk - Baby B: Medium (6-9) - Level of Risk - Baby C Level of Risk - Baby C: Medium (6-9) Physician Notification (Pre) - Physician Notified Physician Notified Date: 12/02/20 Physician Notified Time: 19:13 New Order Received: Yes - Notification Comment Comment: admit for labor Disposition - Disposition OB Disposition: Admit I agree with the RN Medical Screening Exam: Yes Case reviewed; plan agreed upon as documented in EMR&OBIX.: Yes Diagnosis: ENCOUNTER FOR FULL-TERM UNCOMPLICATED DELIVERY
[2020-12-03] MEDS: IBUPROFEN 600 MG TAB PO SCH ×3 (07:43→23:22)
[2020-12-03 11:05] LABS: Anisocytosis Slight; Basophils % (A) 0 %; Eosinophils % (A) 0 %; HCT 32.5 % (34.0-46.0); HGB 10.4 gm/dL (11.4-16.0); Lymphocytes # (A) 1.4 k/uL (1.0-4.8); Lymphocytes % (A) 7 %; MCH 28.6 pg (25.0-35.0); MCV 89.3 fL (80.0-100.0); Monocytes # (A) 0.9 k/uL (0-1.0); Monocytes % (A) 5 %; Neutrophils % (A) 87 %; Platelet Count 174 k/uL (150-450); RBC 3.64 m/uL (3.80-5.40); RDW 18.7 % (11.5-15.5); WBC 19.5 k/uL (3.8-10.6)
[2020-12-03] MEDS: SENNOSIDES-DOCUSATE SODIUM 1 EACH TAB PO SCH ×2 (18:27→19:40)
[2020-12-03] MEDS: PRENATAL VIT-IRON-FOLIC ACID 1 EACH CAP PO SCH (18:27)
[2020-12-03] MEDS: ACETAMINOPHEN TAB 325 MG TAB PO PRN (19:40)
[2020-12-04] MEDS: ACETAMINOPHEN TAB 325 MG TAB PO PRN ×2 (03:50→21:22)
[2020-12-04] MEDS: IBUPROFEN 600 MG TAB PO SCH ×4 (05:27→17:49)
[2020-12-04] MEDS: SENNOSIDES-DOCUSATE SODIUM 1 EACH TAB PO SCH ×2 (08:30→21:21)
--- NOTE | 2020-12-04 08:58 | P.PNOBGVD ---
Subjective - Subjective Principal diagnosis: Status post vaginal delivery day #1 Interval history: Patient is doing okay. She is sore. She is using ibuprofen. She is working on breast-feeding. Baby is on a bili blanket. Lochia has been minimal. Patient reports: Reports appetite normal, Reports voiding normally, Reports pain well controlled, Reports ambulating normally Thurston: doing well Objective - Latest Vital Signs Latest vital signs: Vital Signs Temp Pulse Resp BP Pulse Ox 12/04/20 04:00 98.0 F 72 16 132/82 12/03/20 23:46 98.6 F 76 16 120/76 12/03/20 20:00 97.9 F 67 16 110/73 12/03/20 16:00 98.5 F 60 16 115/72 99 12/03/20 12:00 69 16 126/76 12/03/20 09:25 96.9 F L 65 16 128/74 - Exam Lungs: bilateral: normal Extremities: Present: normal Abdomen: Present: normal appearance, soft Uterus: Present: normal, firm. Absent: tenderness - Labs Labs: Abnormal Lab Results - Last 24 Hours (Table) 12/03/20 Range/Units 09:59 WBC 19.5 H (3.8-10.6) k/uL RBC 3.64 L (3.80-5.40) m/uL Hgb 10.4 L (11.4-16.0) gm/dL Hct 32.5 L (34.0-46.0) % RDW 18.7 H (11.5-15.5) % Neutrophils # 17.0 H (1.3-7.7) k/uL Assessment and Plan Assessment: Status post vaginal delivery day #1 (1) 39 weeks gestation of Current Visit: Yes Status: Acute Code(s): Z3A.39 - 39 WEEKS GESTATION OF SNOMED Code(s): 41870115 Plan: Continue with care today. Anticipate discharge home tomorrow. Patient will work with breast-feeding acquisition consultant today.
--- NOTE | 2020-12-04 09:02 | P.DS ---
Providers Date of admission: 12/02/20 19:10 Expected date of discharge: 12/05/20 Attending physician: Darling Otoole Primary care physician: Stated None - Discharge Diagnosis(es) (1) 39 weeks gestation of Current Visit: Yes Status: Acute Hospital Course: This is a 25 year old female 1 para 0 at 39-4/7 weeks who presented with active labor. She underwent oxytocin augmentation of labor and artificial rupture membranes with clear fluid noted. She delivered vaginally a viable female on 12/03/2020 with scores of 9 at 1 minute and 9 at 5 minutes and infant weight of 5 lbs. 14 oz. Her course has been uncomplicated. Lochia is decreasing. She is working on breast-feeding. Pain is fairly well controlled. Vital signs are stable. Abdomen is soft with fundus firm and nontender. Extremities show negative Homans. Impression is status post vaginal delivery day #1. Plan is to discharge home tomorrow since baby is on a bili blanket today. Routine instructions are given. She will be given a prescription for a breast pump and ibuprofen. She is advised follow-up in the office in 6 weeks for check. She is advised to call the office if she has any further questions or concerns prior to her appointment time. Procedures: Spontaneous vaginal delivery of a viable female on 12/03/2020 Patient Condition at Discharge: Stable Plan - Discharge Summary New Discharge Prescriptions: New Ibuprofen [Motrin] 600 mg PO Q6H #60 tab Continue Pnv,Calcium 72/Iron/Folic Acid [ Plus Tablet] 1 each PO DAILY MDD 1 tab No Action Acyclovir 800 mg PO MDD 800 mg Discharge Medication List Acyclovir 800 mg PO MDD 800 mg 11/11/20 [History] Pnv,Calcium 72/Iron/Folic Acid [ Plus Tablet] 1 each PO DAILY MDD 1 tab 11/11/20 [History] Ibuprofen [Motrin] 600 mg PO Q6H #60 tab 12/04/20 [Rx] Follow up Appointment(s)/Referral(s): Darling Otoole DO [Doctor of Osteopathic Medicine] - 6 Weeks Activity/Diet/Wound Care/Special Instructions: Instructions 1. Do not begin any exercise program for 3 weeks. 2. Do not resume sexual relations for 3 weeks or longer if uncomfortable. 3. You may take tub baths or showers at any time. 4. You may use tampons if desired after 3 weeks. 5. Keep the area of episiotomy (stitches) clean and dry. 6. If you are not nursing, wear a good fitting, supportive bra during the day and limit fluid intake for at least 1 week to prevent breast engorgement. 7. Call the office, [phone], within the next week to make appointment for your 6 week checkup if it has not already been made. 8. Report any of the following occurrences to the doctor promptly: a. Heavy, excessive bleeding b. Chills, fever c. Burning or frequency of urination d. Pain or redness and breasts if nursing e. Increasing pain or swelling in episiotomy (stitches). In addition to the above instructions, the following additional should be followed: 1. No heavy lifting or straining (exercising) until after 6 week checkup. 2. Keep abdominal incision clean and dry: You may wear a dressing if more comfortable. 3. Make office appointment for 10 days after going home or as instructed by her doctor. Discharge Disposition: HOME SELF-CARE
[2020-12-04 09:37] LABS: Anisocytosis Slight; Basophils # (A) 0.1 k/uL (0-0.2); Basophils % (A) 0 %; Eosinophils # (A) 0.1 k/uL (0-0.7); Eosinophils % (A) 1 %; HCT 27.4 % (34.0-46.0); HGB 9.1 gm/dL (11.4-16.0); Lymphocytes % (A) 14 %; MCH 29.3 pg (25.0-35.0); MCHC 33.2 g/dL (31.0-37.0); MCV 88.2 fL (80.0-100.0); Mean Platelet Volume 10.2; Monocytes # (A) 0.6 k/uL (0-1.0); Monocytes % (A) 4 %; Neutrophils # (A) 10.8 k/uL (1.3-7.7); Neutrophils % (A) 79 %; Platelet Count 151 k/uL (150-450); RBC 3.11 m/uL (3.80-5.40); RDW 18.7 % (11.5-15.5); WBC 13.6 k/uL (3.8-10.6)
[2020-12-04] MEDS: PRENATAL VIT-IRON-FOLIC ACID 1 EACH CAP PO SCH (16:08)
[2020-12-05] MEDS: IBUPROFEN 600 MG TAB PO SCH ×2 (00:08→05:55)
[2020-12-05] MEDS: ACETAMINOPHEN TAB 325 MG TAB PO PRN (03:29)
[2020-12-05 08:19] VITALS: BP 111/72; PULSE 87; RESP 16; TEMP 98.4
[2020-12-05] MEDS: SENNOSIDES-DOCUSATE SODIUM 1 EACH TAB PO SCH (08:19)
--- NOTE | 2020-12-05 10:57 | P.DS ---
Providers Date of admission: 12/02/20 19:10 Expected date of discharge: 12/05/20 Attending physician: Darling Otoole Primary care physician: Stated None Hospital Course: Cleopatra is doing very well day 2. She is ambulating, voiding and tolerating her diet. She voices no complaints and is requesting discharge to home today. Vital signs are stable and she is afebrile. All questions were previously answered by Dr. Xiong we did review discharge instructions and she will follow up with Dr. Xiong in 6 weeks. Patient Condition at Discharge: Good Plan - Discharge Summary New Discharge Prescriptions: New Ibuprofen [Motrin] 600 mg PO Q6H #60 tab Continue Pnv,Calcium 72/Iron/Folic Acid [ Plus Tablet] 1 each PO DAILY MDD 1 tab No Action Acyclovir 800 mg PO MDD 800 mg Discharge Medication List Acyclovir 800 mg PO MDD 800 mg 11/11/20 [History] Pnv,Calcium 72/Iron/Folic Acid [ Plus Tablet] 1 each PO DAILY MDD 1 tab 11/11/20 [History] Ibuprofen [Motrin] 600 mg PO Q6H #60 tab 12/04/20 [Rx] Follow up Appointment(s)/Referral(s): Darling Otoole DO [Doctor of Osteopathic Medicine] - 6 Weeks Activity/Diet/Wound Care/Special Instructions: Instructions 1. Do not begin any exercise program for 3 weeks. 2. Do not resume sexual relations for 3 weeks or longer if uncomfortable. 3. You may take tub baths or showers at any time. 4. You may use tampons if desired after 3 weeks. 5. Keep the area of episiotomy (stitches) clean and dry. 6. If you are not nursing, wear a good fitting, supportive bra during the day and limit fluid intake for at least 1 week to prevent breast engorgement. 7. Call the office, [phone], within the next week to make appointment for your 6 week checkup if it has not already been made. 8. Report any of the following occurrences to the doctor promptly: a. Heavy, excessive bleeding b. Chills, fever c. Burning or frequency of urination d. Pain or redness and breasts if nursing e. Increasing pain or swelling in episiotomy (stitches). In addition to the above instructions, the following additional should be followed: 1. No heavy lifting or straining (exercising) until after 6 week checkup. 2. Keep abdominal incision clean and dry: You may wear a dressing if more comfortable. 3. Make office appointment for 10 days after going home or as instructed by her doctor. Discharge Disposition: HOME SELF-CARE
== END 2020-12-05 13:00 | disposition home or self-care (01) | DRG 807 ==
LOC: FBPOP 18:52 → 4FBP 19:10
PROVIDERS: ADMIT Obstetrics & Gynecology; ATTEND Obstetrics & Gynecology
PROC: 10E0XZZ Delivery of Products of Conception, External Approach (ICD-10-PCS; principal; 2020-12-03)
PROC: 0HQ9XZZ Repair Perineum Skin, External Approach (ICD-10-PCS; 2020-12-03)
DX: O69.3XX0 Labor and delivery complicated by short cord, not applicable or unspecified (principal); Z37.0 Single live birth; Z3A.39 39 weeks gestation of pregnancy; Z86.16 Personal history of COVID-19; O70.0 First degree perineal laceration during delivery
CPT/HCPCS: 59025; 85025; 86850; 86900; 86901; 99213

== ENCOUNTER → 2022-07-27 | Outpatient (CLI) | payer OTHER ==
--- NOTE | 2022-07-28 08:21 | US ---
EXAMINATION TYPE: US pelvic complete DATE OF EXAM: 07/27/2022 COMPARISON: NONE CLINICAL HISTORY: R10.2 PELVIC AND PERINEAL PAIN N92.6 IRREGULAR MENSES. Irregular menses, cramping TECHNIQUE: Transabdominal (TA). Date of LMP: 07/15/22 EXAM MEASUREMENTS: Uterus: 7.3 x 3.5 x 5.3 cm Endometrial Stripe: 0.5 cm Right Ovary: 5.9 x 2.9 x 4.3 cm Left Ovary: 3.1 x 1.3 x 1.8 cm 1. Uterus: Anteverted wnl 2. Endometrium: wnl 3. Right Ovary: complex area = 3.4 x 2.1 x 3.2cm 4. Left Ovary: wnl 5. Bilateral Adnexa: wnl 6. Posterior cul-de-sac: minimal amount of free fluid IMPRESSION: Complex right ovarian lesion could reflect a hemorrhagic cyst. Confirmation could be obtained with fo llow-up study in 6 weeks. Small amount of free fluid seen.
== END | disposition home or self-care (01) ==
LOC: RADUSWWP 15:47
PROVIDERS: ATTEND Obstetrics & Gynecology
DX: N92.6 Irregular menstruation, unspecified (principal); N83.9 Noninflammatory disorder of ovary, fallopian tube and broad ligament, unspecified
CPT/HCPCS: 76856

== ENCOUNTER → 2023-01-24 | Outpatient (CLI) | payer OTHER ==
--- NOTE | 2023-01-24 14:31 | US ---
EXAMINATION TYPE: US OB >= 14 wk fetus DATE OF EXAM: 01/24/2023 COMPARISON: 07/27/2022 CLINICAL INDICATION: Female, 27 years old with history of Z36.89 ENCOUNTER FOR OTHER SPECIFIED ANTENA KARYNA SCREENING; confirm dates TECHNIQUE: GESTATIONAL AGE / DATING Physician Established: Not yet established Dates by LMP: (15 weeks/4 days) EDC: 07/14/2023 Dates by First Scan: No previous this is first scan Dates by Current Scan: (15 weeks/0 days) EDC: 07/18/2023 SURVEY IUP: Single PLACENTA: Anterior. The myometrium deep to the placenta appears focally thickened and heterogeneous. PREVIA: No Previa DAVID: 12.3 cm Normal CERVICAL LENGTH (transabdominal: norm > 3.0cm): 4.7 cm BIOMETRY PRESENTATION: Variable LIE: Variable BPD: 2.9 cm 15 weeks / 2 days HC: 10.89 cm 15 weeks / 2 days AC: 8.05 cm 14 weeks / 3 days FL: 1.62 cm 14 weeks / 5 days ESTIMATED WEIGHT IN GRAMS: 103.77 grams ESTIMATED WEIGHT IN LBS/OZ: 4 lbs. 1 oz. WEIGHT PERCENTAGE BASED ON ESTABLISHED DATES: 4.2% HC/AC: 1.35 cm Normal FL/AC: 20.06 cm Normal HEART RATE: 130 bpm RHYTHM: Normal IMPRESSION: 1. Single live intrauterine with estimated gestational age of 15 weeks 4 days by LMP. Curre nt ultrasound biometry is slightly smaller but concordant at 15 weeks 0 days. 2. Consider short interval follow-up as these measurements place the child at the 4th percentile for weight. 3. Anterior placenta. The myometrium deep to the placenta appears focally thickened and heterogeneous . This could represent a transient myometrial contraction. Focal fibroid considered less likely given the normal appearance to the uterus on 07/27/2022. Recommend short interval follow-up to reassess th is region.
== END | disposition home or self-care (01) ==
LOC: RADUSWWP 09:41
PROVIDERS: ATTEND Obstetrics & Gynecology
DX: Z36.89 Encounter for other specified antenatal screening (principal); Z3A.15 15 weeks gestation of pregnancy
CPT/HCPCS: 76805

== ENCOUNTER 2023-07-11 06:14 | Inpatient (IN) | payer OTHER ==
--- NOTE | 2023-07-10 16:04 | P.HPOB ---
History of Present Illness H&P Date: 07/10/23 Chief Complaint: Induction of labor This is a 28 y.o. female, 4, para 1, with an estimated date of confinement of 07/14/2023, estimated gestational age of 39-4/7 week, who presents for induction of labor. She complains of pelvic pain and pressure along with irregular contractions. course has been essentially uncomplicated. labs: GC/Chlamydia/Trich-neg Hemoglobin-10.4 Blood type-O+ Antibody screen-neg Rubella-immune RPR-NR Hepatitis C-NR Random glucose-83 Hepatitis B surface antigen-neg 1 hr. GTT-96 GBS-neg OB Hx: . History of 1 vaginal delivery at term and 2 miscarriages. Distribution Specialist Hx: History of chlamydia treated in past. History of oral HSV. Social Hx: Single. 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 Review of Systems Constitutional: Denies chills, Denies fever Eyes: denies blurred vision, denies pain Ears, nose, mouth and throat: Denies headache, Denies sore throat Cardiovascular: Denies chest pain, Denies shortness of breath Respiratory: Denies cough Gastrointestinal: Reports abdominal pain (irregular contractions) Genitourinary: Reports pelvic pain, Reports Musculoskeletal: Reports low back pain Integumentary: Denies pruritus, Denies rash Neurological: Denies numbness, Denies weakness Psychiatric: Reports anxiety Past Medical History Past Medical History: No Reported History Additional Past Medical History / Comment(s): miscarrige 2019. History of Any Multi-Drug Resistant Organisms: None Reported Past Surgical History: No Surgical Hx Reported Past Anesthesia/Blood Transfusion Reactions: No Reported Reaction Past Psychological History: No Psychological Hx Reported Smoking Status: Former smoker Past Alcohol Use History: None Reported Past Drug Use History: None Reported - Past Family History Mother Family Medical History: No Reported History Medications and Allergies Home Medications Medication Instructions Recorded Confirmed Type Vit No.180/Iron/Folic 1 each PO DAILY MDD 1 tab 11/11/20 12/02/20 History [ Plus Vitamin-Mineral] Allergies Allergy/AdvReac Type Severity Reaction Status Date / Time No Known Allergies Allergy Verified 12/02/20 19:11 Exam Osteopathic Statement: *. No significant issues noted on an osteopathic structural exam other than those noted in the History and Physical/Consult. HEENT: within normal limits Heart: regular rate and rhythm Lungs: clear to auscultation bilaterally Abdomen: , non-tender Cervix: 1.5 cm/70%/-3 heart tones: 140's by doppler Extremities: neg. Gurjit's Assessment and Plan (1) 39 weeks gestation of Status: Acute Code(s): Z3A.39 - 39 WEEKS GESTATION OF SNOMED Code(s): 52259699 Plan: Proceed with oxytocin induction of labor. Expectant management. Epidural anesthesia if desired.
[2023-07-11] MEDS: LACTATED RINGERS 1,000 ML IV SCH ×4 (06:30→16:57)
[2023-07-11] MEDS ORDERED: TERBUTALINE 1 MG/ML VIAL SQ PRN (06:44)
[2023-07-11] MEDS ORDERED: TRANEXAMIC 1,000 MG/100ML-NACL 1,000 MG in EMPTY BAG 1 BAG IV PRN (06:44)
[2023-07-11] MEDS ORDERED: CARBOPROST TROMETHAMINE 250 MCG/ML 1 ML AMP IM PRN (06:44)
[2023-07-11] MEDS ORDERED: METHYLERGONOVINE 0.2 MG/ML 1 ML AMP IM PRN (06:44)
[2023-07-11] MEDS ORDERED: miSOPROStoL 200 MCG TAB PO PRN (06:44)
[2023-07-11] MEDS ORDERED: LIDOCAINE 0.5% (PF) 5 MG/ML (50 ML SDV) SQ PRN (06:44)
[2023-07-11] MEDS ORDERED: OXYTOCIN 10 UNIT/ML 1 ML VIAL IM PRN (06:44)
[2023-07-11] MEDS ORDERED: OXYTOCIN 30 UNITS/500 ML NS 30 UNIT in SALINE 1 500ML.BAG IV SCH ×2 (06:45→20:12)
[2023-07-11 07:42] LABS: Anisocytosis Slight; Basophils % (A) 0 %; Eosinophils # (A) 0.1 k/uL (0-0.7); Eosinophils % (A) 2 %; HCT 30.9 % (34.0-46.0); HGB 9.9 gm/dL (11.4-16.0); Hypochromasia Slight; Lymphocytes # (A) 2.2 k/uL (1.0-4.8); Lymphocytes % (A) 25 %; MCH 26.1 pg (25.0-35.0); MCHC 32.1 g/dL (31.0-37.0); MCV 81.4 fL (80.0-100.0); Mean Platelet Volume 9.5; Monocytes # (A) 0.4 k/uL (0-1.0); Monocytes % (A) 5 %; Neutrophils # (A) 5.8 k/uL (1.3-7.7); Neutrophils % (A) 66 %; Platelet Count 254 k/uL (150-450); WBC 8.7 k/uL (3.8-10.6)
[2023-07-11] MEDS ORDERED: NALBUPHINE 10 MG/ML (10 ML MDV) IV PRN (09:05)
[2023-07-11] MEDS ORDERED: fentaNYL (PF) 50 MCG/ML 5 ML AMP ONE (09:45)
[2023-07-11] MEDS ORDERED: ROPIVACAINE 5 MG/ML 30 ML VIAL ONE (09:45)
[2023-07-11] MEDS ORDERED: SODIUM CHLORIDE 0.9% 250 ML BAG ONE (09:45)
[2023-07-11] MEDS ORDERED: ROPIVACAINE 225 MG, fentaNYL (PF). 450 MCG in SODIUM CHLORIDE 0.9% 171 ML EPIDURAL ONE (10:14)
--- NOTE | 2023-07-11 10:17 | P.ANPRN ---
Procedure Note - Anesthesia - Epidural/Spinal Epidural Continuous Time Out Performed: Yes Date of Procedure: 07/11/23 Procedure Start Time: 09:47 Procedure Stop Time: 09:52 Location of Patient: OB Indication: Analgesia, Requested by Surgeon Sedation Type: Awake Preparation: Sterile Dressing Position: Sitting Catheter: Indwelling Needle Guage: 18 Blood Aspirated: No Pain Paresthesia on Injection Noted: No Events: Uneventful and Well Tolerated (One attempt at L1-L2 level, loss of resistance 5 cm, and catheter at the skin level 10 cm.)
[2023-07-11] MEDS ORDERED: CITRIC ACID-SODIUM CITRATE 15 ML CUP PO ONE (19:03)
[2023-07-11] MEDS ORDERED: KETOROLAC 30 MG/ML 1 ML VIAL ONE (19:12)
[2023-07-11] MEDS ORDERED: fentaNYL (PF) 50 MCG/ML 2 ML AMP ONE (19:12)
[2023-07-11] MEDS ORDERED: MORPHINE SULFATE (PF) 0.3 MG/0.3 ML SYR ONE (19:12)
[2023-07-11] MEDS ORDERED: diphenhydrAMINE 50 MG/ML 1 ML VIAL ONE (19:12)
[2023-07-11] MEDS ORDERED: OXYTOCIN 10 UNIT/ML 1 ML VIAL ONE (19:12)
[2023-07-11] MEDS ORDERED: ONDANSETRON 4 MG/2 ML VIAL ONE (19:12)
[2023-07-11] MEDS ORDERED: DEXAMETHASONE SOD PHOSPHATE 4 MG/ML 1 ML VIAL ONE (19:12)
--- NOTE | 2023-07-11 20:09 | P.OP ---
Date of Procedure: 07/11/23 Preoperative Diagnosis: 1. Intrauterine at 39-4/7 weeks. 2. Failure to descend. 3. Category 2 heart tones. Postoperative Diagnosis: Same Procedure(s) Performed: Primary low transverse section Anesthesia: epidural (Duramorph) Surgeon: Darling Otoole Blood Collector #1: Domo Richardson Estimated Blood Loss (ml): 600 Pathology: none sent Condition: stable Disposition: floor Indications for Procedure: This is a 28-year-old female 4 para 1 at 39-4/7 weeks who presented for induction of labor. She underwent oxytocin induction of labor and artificial rupture of membranes with clear fluid noted. She did have periods of time t hrough the day where she would have late decelerations, oxytocin would be turned off, and status with improved. She required the oxytocin be turned off 3 times during her labor course. The last time it was turned off however she was noted to be about 8 cm. She reached approximately 8-1/2-9 cm and was feeling an urge to push. She was allowed to start pushing and cervix did push past the i nfant's head however was not stained down with each push. There was also noted to be some increasing caput. In addition patient was beginning to have tachycardia in the 180s to 190s with late decelerations after each contraction. A patient centered huddle was carried out regarding category 2 heart tones. Patient and her agreed to proceed with urgent section. I have discussed the risks, benefits, and alternative therapies for the above- mentioned procedure and for both sedation/anesthesia as well as necessary blood products administration, if indicated, as they pertain to this patient. The patient has indicated her understanding and acceptance of the risks and procedures discussed. Operative Findings: A viable female infant is noted in the occiput posterior lie with scores of 8 at 1 minute and 9 at 5 minutes and infant weight of 6 lbs. 1 oz. Normal uterus tubes and ovaries are noted. Description of Procedure: The patient is taken to the operating room where she is placed in the dorsal supine position with leftward tilt after spinal Duramorph anesthesia is given. She is prepped and draped in the normal sterile fashion. Skin was tested and found to be adequately anesthetized. A Pfannenstiel skin incision was made with a scalpel. A second knife was used to carry the incision down to the underlying layer of fascia. The fascia was nicked in the midline with a scalpel and then extended laterally bilaterally with Christopher scissors. The anterior lip of the fascia was grasped with 2 Rupa clamps and then dissected off the underlying rectus muscle in the midline with Christopher scissors. The inferior aspect of the fascial incision was grasped with 2 Rupa clamps and dissected off the underlying rectus muscle and the midline with Christopher scissors. Next the peritoneum layer was tented up with 2 hemostats and then entered sharply with the scalpel. The incision is extended superiorly and inferiorly with Metzenbaum scissors. Next a DeLee retractor is placed. The vesicouterine peritoneum is entered sharply with Metzenbaum scissors and extended laterally bilaterally with Metzenbaum scissors and then the bladder flap is pushed inferiorly. The lower uterine segment is incised in transverse fashion with the scalpel and then bluntly entered with a hemostat. Clear fluid is noted. The incision was then extended laterally bilaterally with 2 fingers. Next the infant's head is delivered through the incision. Head is noted to be in occiput posterior lie. Nose and mouth are bulb suctioned. The remainder of the infant is easily delivered and placed on mother's abdomen. Cord is clamped and cut. Infant is taken to warmer by nursing staff. Cord blood was obtained secondary to O+ blood type. Uterine fundus is gently massaged and placenta is delivered manually. Uterus is exteriorized and cleared of all clots and debris. Uterine incision is closed with 0 Vicryl suture in a running locked fashion. A second layer of 0 Vicryl suture is used in a running fashion for hemostasis. Several interrupted stitches were also placed for hemostasis. Once adequate hemostasis as assured, the vesicouterine peritoneum is reapproximated with 2-0 Vicryl suture in a running fashion. Posterior cul-de-sac is suctioned of all clots and debris. Uterus is returned to the abdomen. Incision is noted to be hemostatic. Peritoneal layer is closed with 0 Vicryl suture in a running fashion. Muscle layer is reapproximated with 0 Vicryl suture in interrupted fashion. Fascia layer is then closed with 0 PDS suture with 2 sutures meeting in the midline and the knots buried in either side and in the midline. The subcutaneous tissue was then closed with 2-0 Vicryl suture. Skin layer was then closed with jenaro. All sponge and needle counts are correct. The patient is taken to recovery room in stable condition.
[2023-07-11] MEDS ORDERED: ZOLPIDEM 5 MG TAB PO PRN (20:12)
[2023-07-11] MEDS ORDERED: ONDANSETRON 4 MG/2 ML VIAL IVP PRN (20:12)
[2023-07-11] MEDS ORDERED: diphenhydrAMINE 50 MG/ML 1 ML VIAL IVP PRN ×2 (20:12)
[2023-07-11] MEDS ORDERED: diphenhydrAMINE 25 MG CAP PO PRN (20:12)
[2023-07-11] MEDS ORDERED: HYDROmorphone 1 MG/ML 1 ML SYRINGE IVP PRN (20:12)
[2023-07-11] MEDS ORDERED: diphenhydrAMINE 50 MG CAP PO PRN (20:12)
[2023-07-11] MEDS ORDERED: NALOXONE 0.4 MG/ML 1 ML VIAL IV PRN (20:12)
[2023-07-11] MEDS ORDERED: HYDROmorphone 0.5 MG/0.5 ML SYRINGE IVP PRN (20:12)
[2023-07-11] MEDS ORDERED: METOCLOPRAMIDE 5 MG/ML 2 ML VIAL IVP PRN (20:12)
[2023-07-11] MEDS ORDERED: LANOLIN CREAM 5 GM TUBE TOPICAL PRN (20:12)
[2023-07-12] MEDS: ACETAMINOPHEN IV (For NPO) 1,000 MG in EMPTY BAG 1 BAG IVPB SCH ×2 (00:23→07:09)
[2023-07-12] MEDS: SENNOSIDES-DOCUSATE SODIUM 1 EACH TAB PO SCH ×3 (02:02→19:54)
[2023-07-12] MEDS: KETOROLAC 15 MG/ML 1 ML VIAL IVP SCH ×4 (02:04→15:16)
[2023-07-12] MEDS: ACETAMINOPHEN TAB 500 MG TAB PO SCH ×4 (02:04→18:06)
[2023-07-12] MEDS: IBUPROFEN 600 MG TAB PO SCH ×4 (04:41→21:16)
--- NOTE | 2023-07-12 07:18 | P.PN ---
Progress Note - Text 07/12/23 644am 28-year-old female status post with spinal Duramorph. Patient seen and evaluated for postop pain control, she has a VAS of 1 with no complains of nausea vomiting or pruritus.
[2023-07-12 08:58] LABS: Anisocytosis Slight; Basophils % (A) 0 %; Eosinophils % (A) 0 %; HCT 27.1 % (34.0-46.0); HGB 8.5 gm/dL (11.4-16.0); Hypochromasia Marked; Lymphocytes # (A) 2.3 k/uL (1.0-4.8); Lymphocytes % (A) 14 %; MCHC 31.4 g/dL (31.0-37.0); MCV 82.9 fL (80.0-100.0); Mean Platelet Volume 10.3; Monocytes # (A) 0.7 k/uL (0-1.0); Monocytes % (A) 4 %; Neutrophils % (A) 81 %; Platelet Count 236 k/uL (150-450); RBC 3.27 m/uL (3.80-5.40); RDW 17.2 % (11.5-15.5); WBC 17.2 k/uL (3.8-10.6)
--- NOTE | 2023-07-12 09:34 | P.PNOBGPC ---
Subjective - Subjective Principal diagnosis: Status post primary low transverse section postoperative day #1 Interval history: Patient is doing okay. She is ambulating. She has not passed flatus or bowel movement yet. Bleeding has been minimal. She has urinated. Patient reports: Reports appetite normal, Reports voiding normally, Reports pain well controlled, Reports ambulating normally [place]: doing well, nursing well Objective - Vital Signs Latest vital signs: Vital Signs Temp Pulse Resp BP Pulse Ox 07/12/23 08:00 98.4 F 63 17 106/64 07/12/23 04:00 98.1 F 69 17 113/64 97 07/12/23 00:00 98.5 F 82 16 116/60 07/11/23 22:13 99.7 F H 73 16 120/59 07/11/23 21:43 79 16 120/64 07/11/23 21:13 100.5 F H 76 16 119/56 07/11/23 20:58 76 16 113/56 07/11/23 20:43 94 16 128/60 07/11/23 20:28 99.2 F 83 16 110/57 07/11/23 20:13 99.5 F 100 16 118/64 Intake and Output 07/11/23 07/12/23 07/12/23 22:59 06:59 14:59 Intake Total 519 861 2563 Output Total 1200 1750 Balance -950 -1500 1200 Intake: Oral 298 440 5467 Output: Urine 550 1750 Straight 150 1400 Output, Quantitative 650 Blood Loss - Exam Extremities: Present: normal. Absent: tenderness, edema Abdomen: Present: normal appearance, soft (Bowel sounds are faint.), distention (Slightly). Absent: tenderness Incision: Present: normal, dry, intact. Absent: erythematous Uterus: Present: normal, firm. Absent: tenderness - Labs Labs: Abnormal Lab Results - Last 24 Hours (Table) 07/12/23 Range/Units 08:11 WBC 17.2 H (3.8-10.6) k/uL RBC 3.27 L (3.80-5.40) m/uL Hgb 8.5 L (11.4-16.0) gm/dL Hct 27.1 L (34.0-46.0) % RDW 17.2 H (11.5-15.5) % Neutrophils # 14.0 H (1.3-7.7) k/uL Assessment and Plan Assessment: Status post primary low transverse section postoperative day #1 (1) 39 weeks gestation of Current Visit: No Status: Acute Code(s): Z3A.39 - 39 WEEKS GESTATION OF SNOMED Code(s): 83520933 Plan: Continue postoperative care today. Will add iron supplementation due to anemia.
[2023-07-12] MEDS: SIMETHICONE 80 MG CHEWABLE PO PRN ×2 (12:06→17:38)
[2023-07-12] MEDS ORDERED: FERROUS SULFATE 325 MG TAB PO SCH (17:30)
[2023-07-13] MEDS: ACETAMINOPHEN TAB 500 MG TAB PO SCH ×2 (01:45→07:36)
[2023-07-13] MEDS: IBUPROFEN 600 MG TAB PO SCH ×2 (03:50→10:51)
[2023-07-13] MEDS: SENNOSIDES-DOCUSATE SODIUM 1 EACH TAB PO SCH (07:36)
[2023-07-13 07:48] VITALS: BP 117/71; PULSE 78; RESP 16; TEMP 97.6
--- NOTE | 2023-07-13 09:21 | P.DS ---
Providers Date of admission: 07/11/23 06:14 Expected date of discharge: 07/13/23 Attending physician: Darling Otoole Primary care physician: Stated None - Discharge Diagnosis(es) (1) 39 weeks gestation of Current Visit: No Status: Acute Hospital Course: This is a 28-year-old female 4 para 1 at 39-4/7 weeks who presented for induction of labor. She underwent oxytocin induction of labor and then required primary low transverse section due to category 2 heart tones and failure to descend. She delivered a viable female infant on 07/11/2023 with scores of 8 at 1 minute and 9 at 5 minutes and infant weight of 6 lbs. 1 oz. Her postoperative and courses have been uncomplicated. She is breast-feeding. Lochia is decreasing. Her pain is fairly well controlled with ibuprofen and Tylenol. She has used one dose of oxycodone. She is passing flatus and bowel movement now. She is urinating without difficulty. She is breast-feeding. Vital signs are stable. Abdomen is soft with positive bowel sounds 4. Incision is clean dry and intact with jenaro in place. Extremities show negative Homans. Impression is status post primary low transverse section postoperative day #2. Plan is to discharge home today. Routine postoperative and instructions are given. [place] will be removed and Steri-Strips placed prior to discharge. She is advised to follow up in the office in approximately 1 week for a postoperative check and in 6 weeks for check. She is advised to call the office if she has any further questions or concerns prior to her appointment time. She will be given a prescription for ibuprofen and a few oxycodone. She has been counseled regarding opioid use. Procedures: Primary low transverse section on 07/11/2023 Patient Condition at Discharge: Stable Plan - Discharge Summary New Discharge Prescriptions: New Ibuprofen [Motrin] 600 mg PO Q6H #60 tab oxyCODONE HCL [OxyIR] 5 mg PO Q4HR PRN #10 tab PRN Reason: Pain Scale 4 - 6 Continue Ferrous Sulfate [Feosol] 325 mg PO DAILY No Action penicillAMINE 500 mg PO DAILY Vit No.180/Iron/Folic [ Plus Vitamin-Mineral] 1 each PO DAILY MDD 1 tab Discharge Medication List Vit No.180/Iron/Folic [ Plus Vitamin-Mineral] 1 each PO DAILY MDD 1 tab 11/11/20 [History] Ferrous Sulfate [Feosol] 325 mg PO DAILY 07/11/23 [History] penicillAMINE 500 mg PO DAILY 07/11/23 [History] Ibuprofen [Motrin] 600 mg PO Q6H #60 tab 07/13/23 [Rx] oxyCODONE HCL [OxyIR] 5 mg PO Q4HR PRN #10 tab 07/13/23 [Rx] Follow up Appointment(s)/Referral(s): Darling Otoole DO [Doctor of Osteopathic Medicine] - 08/15/23 3:30 pm Activity/Diet/Wound Care/Special Instructions: Instructions 1. Do not begin any exercise program for 3 weeks. 2. Do not resume sexual relations for 3 weeks or longer if uncomfortable. 3. You may take tub baths or showers at any time. 4. You may use tampons if desired after 3 weeks. 5. Keep the area of episiotomy (stitches) clean and dry. 6. If you are not nursing, wear a good fitting, supportive bra during the day and limit fluid intake for at least 1 week to prevent breast engorgement. 7. Call the office, [phone], within the next week to make appointment for your 6 week checkup if it has not already been made. 8. Report any of the following occurrences to the doctor promptly: a. Heavy, excessive bleeding b. Chills, fever c. Burning or frequency of urination d. Pain or redness and breasts if nursing e. Increasing pain or swelling in episiotomy (stitches). In addition to the above instructions, the following additional should be followed: 1. No heavy lifting or straining (exercising) until after 6 week checkup. 2. Keep abdominal incision clean and dry: You may wear a dressing if more comfortable. 3. Make office appointment for 10 days after going home or as instructed by her doctor. Discharge Disposition: HOME SELF-CARE
== END 2023-07-13 13:15 | disposition home or self-care (01) | DRG 540 ==
LOC: 4FBP 06:14
PROVIDERS: ADMIT Obstetrics & Gynecology; ATTEND Obstetrics & Gynecology
PROC: 10907ZC Drainage of Amniotic Fluid, Therapeutic from Products of Conception, Via Natural or Artificial Opening (ICD-10-PCS; 2023-07-11)
PROC: 3E033VJ Introduction of Other Hormone into Peripheral Vein, Percutaneous Approach (ICD-10-PCS; 2023-07-11)
PROC: 4A0HXCZ Measurement of Products of Conception, Cardiac Rate, External Approach (ICD-10-PCS; 2023-07-11)
PROC: 10D00Z1 Extraction of Products of Conception, Low, Open Approach (ICD-10-PCS; principal; 2023-07-11 19:00)
DX: O32.4XX0 Maternal care for high head at term, not applicable or unspecified (principal); O76 Abnormality in fetal heart rate and rhythm complicating labor and delivery; Z37.0 Single live birth; Z3A.39 39 weeks gestation of pregnancy; Z87.891 Personal history of nicotine dependence
CPT/HCPCS: 85025; 86850; 86900; 86901

== ENCOUNTER → 2023-09-12 | Outpatient (CLI) | payer OTHER ==
--- NOTE | 2023-09-13 07:27 | US ---
EXAMINATION TYPE: US pelvic complete DATE OF EXAM: 09/12/2023 COMPARISON: 01/24/2023. CLINICAL INDICATION: Female, 28 years old with history of R10.2 PELVIC AND PERINEAL PAIN; Pelvic pain . 07/29 TECHNIQUE: Transabdominal (TA). Date of LMP: unknown EXAM MEASUREMENTS: Uterus: 7.7 x 3.6 x 5.5 cm Endometrial Stripe: 0.5 cm Right Ovary: 3.4 x 2.1 x 1.8 cm Left Ovary: 2.2 x 1.9 x 1.3 cm 1. Uterus: retroflexed 2. Endometrium: wnl 3. Right Ovary: follicles noted 4. Left Ovary: wnl 5. Bilateral Adnexa: wnl 6. Posterior cul-de-sac: small amount of free fluid IMPRESSION: No evidence for acute process.
== END | disposition home or self-care (01) ==
LOC: RADUSWWP 16:28
PROVIDERS: ATTEND Obstetrics & Gynecology
DX: R10.2 Pelvic and perineal pain (principal)
CPT/HCPCS: 76856

== ENCOUNTER → 2024-06-21 | Outpatient (CLI) | payer OTHER ==
--- NOTE | 2024-06-21 10:56 | XR ---
EXAMINATION TYPE: XR lumbar spine 2 or 3V DATE OF EXAM: 06/21/2024 10:23 AM COMPARISON: None CLINICAL INDICATION: Female, 29 years old with history of M54.50 LOW BACK PAIN, UNSPECIFIED; [facility] TECHNIQUE: XR lumbar spine 2 or 3V - Frontal, lateral and coned in L5-S1 lateral views of the spine. FINDINGS: No evidence of any acute osseous pathology. No evidence of loss of vertebral body height i s seen. There is normal alignment of the lumbar vertebral bodies. Multilevel marginal osteophyte form ation throughout the visualized spine. There is minimal facet joint arthropathy throughout the spine. Significant spinal or neural foraminal stenosis. IMPRESSION: 1. No acute fracture. 2. Mild multilevel disc degeneration. [facility], , 06/21/2024 10:53 AM
== END | disposition home or self-care (01) ==
LOC: RADXRMAIN 10:12
PROVIDERS: ATTEND Internal Medicine Geriatric Medicine
DX: M51.360 Other intervertebral disc degeneration, lumbar region with discogenic back pain only (principal)
CPT/HCPCS: 72100

== ENCOUNTER → 2024-07-02 | Outpatient (CLI) | payer OTHER ==
--- NOTE | 2024-07-03 00:23 | EEG ---
ELECTROENCEPHALOGRAM REPORT CURRENT MEDICATIONS: Unknown. CHARACTERIZATION OF RECORD: This 40-minute electroencephalogram was characterized by background rhythm of 11 to 12 Hertz beta rhythm, which was occipitally dominant as well as reactive to eye opening and eye closure. Photic stimulation was performed and did result in a mild driving response at 16 Hertz. Throughout the second portion of electroencephalogram, evidence of late stage I to early stage II sleep, was noted with poorly formed vertex waves. No hyperventilation was performed during this electroencephalogram. Throughout the duration of this electroencephalogram, there was no evidence of focal slowing, focal spikes, sharp waves, or epileptiform discharges. CONCLUSION: This is a normal 40 minute electroencephalogram. MMODL / IJN: [id number] / [facility]
--- NOTE | 2024-07-11 08:55 | EM ---
7 Day Event monitor note: Patient wore an event monitor for 7 days from 07/02/2024 through 07/08/2024. Findings: Patient's baseline heart rate was normal sinus rhythm Minimum heart rate 43 bpm at 5:30 in the morning Maximum heart rate 121 bpm. Average heart rate 71 bpm There were no signficant atrial fibrillation, atrial flutter, or ventricular tachycardia episodes. There were no significant pauses greater than 2 seconds. Less than 1% PVC burden No patient activated events to correlate with symptoms Conclusions: 7 day event monitor showing normal sinus rhythm and rare asymptomatic PVCs. MTDD
== END | disposition home or self-care (01) ==
LOC: RADECHMAIN 07:26
PROVIDERS: ATTEND Internal Medicine Geriatric Medicine
DX: R55 Syncope and collapse (principal)
CPT/HCPCS: 93270; 95812

== ENCOUNTER → 2024-07-25 | Day surgery (SDC) | payer OTHER ==
[2024-07-24 10:38] VITALS: BMI 23.8
[~2024-07-25] MED LIST: SODIUM CHLORIDE 0.9% 1,000 ML IV SCH
[2024-07-25 06:57] VITALS: BP 133/71; PULSE 71; RESP 16; TEMP 97.6
--- NOTE | 2024-07-29 13:30 | P.EPPROC ---
- EP Procedure Note Electrophysiology Procedure Note: Diagnosis Recurrent syncope Normal twelve-lead EKG Tilt table test per protocol Baseline blood pressure 190s over 72 mmHg, baseline heart rate 59 beats minute Patient was tilted upright from angle of 70 degrees per protocol No change in heart rate No change in blood pressure No symptoms Impression normal heart rate and blood pressure response to upright tilting
== END ==
LOC: CATHEP 06:16
PROVIDERS: ATTEND Internal Medicine Clinical Cardiac Electrophysiology
DX: R55 Syncope and collapse (principal); E07.9 Disorder of thyroid, unspecified; Z79.899 Other long term (current) drug therapy
CPT/HCPCS: 81025; 93660

== ENCOUNTER → 2024-08-16 | Outpatient (CLI) | payer OTHER ==
--- NOTE | 2024-08-16 17:23 | CA ---
Transthoracic Echo Report Name: Cleopatra Tanner Age: 29 Gender: F : 1995 Exam Date: 08/16/2024 16:16 Exam Location: [facility] Ht (in): 59 Wt (lb): 118 Ordering Physician: Giles Pete MD Attending/Referring Phys: Mayur Plascencia [facility] Adjunct Art History Instructor Marija Russell RDCS Procedure CPT: Indications: R55 FAINTING Cardiac Hx: Technical Quality: Fair Contrast 1: Total Dose (mL): Contrast 2: Total Dose (mL): MEASUREMENTS (Male / Female) Normal Values 2D ECHO LV Diastolic Diameter PLAX 4.4 cm 4.2 - 5.9 / 3.9 - 5.3 cm LV Systolic Diameter PLAX 3.2 cm IVS Diastolic Thickness 0.6 cm 0.6 - 1.0 / 0.6 - 0.9 cm LVPW Diastolic Thickness 0.7 cm 0.6 - 1.0 / 0.6 - 0.9 cm LV Relative Wall Thickness 0.3 RV Internal Dim ED PLAX 2.9 cm LVOT Diameter 1.7 cm LV Diastolic Volume MOD BP 57.1 cm??? 67 - 155 / 56 - 104 cm??? LV Systolic Volume MOD BP 24.3 cm??? 22 - 58 / 19 - 49 cm??? LV Ejection Fraction MOD BP 57.4 % >= 55 % LV Cardiac Index MOD BP 1591.5 cm???/min???m??? LV Diastolic Volume MOD 4C 88.8 cm??? LV Systolic Volume MOD 4C 37.5 cm??? LV Ejection Fraction MOD 4C 57.8 % LV Cardiac Index MOD 4C 2493.9 cm???/min???m??? LV Diastolic Length 4C 8.9 cm LV Systolic Length 4C 6.8 cm LV Diastolic Volume MOD 2C 32.3 cm??? LV Systolic Volume MOD 2C 14.5 cm??? LV Ejection Fraction MOD 2C 55.3 % LV Cardiac Index MOD 2C 868.4 cm???/min???m??? LV Diastolic Length 2C 7.8 cm LV Systolic Length 2C 6.2 cm LA Volume 26.0 cm??? 18 - 58 / 22 - 52 cm??? LA Volume Index 17.3 cm???/m??? 16 - 28 cm???/m??? DOPPLER LVOT Peak Velocity 93.7 cm/s LVOT Peak Gradient 3.5 mmHg LVOT Velocity Time Integral 16.6 cm LVOT Stroke Volume 39.7 cm??? LVOT Stroke Volume Index 27.0 ml/m??? LVOT Cardiac Index 1929.7 cm???/min???m??? MV Area PHT 5.1 cm??? Mitral E Point Velocity 73.8 cm/s Mitral A Point Velocity 44.1 cm/s Mitral E to A Ratio 1.7 MV Deceleration Time 150.0 ms MV E' Velocity 13.0 cm/s Mitral E to MV E' Ratio 5.7 TR Peak Velocity 165.2 cm/s TR Peak Gradient 10.9 mmHg FINDINGS Left Ventricle Normal left ventricular size, wall thickness, systolic function with no obvious regional wall motion abnormalities. Normal left ventricular diastolic filling pattern for age. The ejection fraction is visually estimated at 55-60 %. Right Ventricle The right ventricle is normal in size and function. Right ventricular systolic pressure within normal limits. Right Atrium The right atrium is normal in size. Left Atrium The left atrium is normal in size. Interatrial septal is mobile. Mitral Valve Structurally normal mitral valve without significant stenosis or prolapse. There is mild mitral regurgitation. Aortic Valve Structurally normal aortic valve without significant sclerosis or stenosis. There is trace to mild aortic regurgitation. Tricuspid Valve Structurally normal tricuspid valve without significant stenosis. Pulmonary artery systolic pressure is normal. Mild tricuspid regurgitation. Pulmonic Valve Structurally normal pulmonic valve without significant stenosis. There is mild pulmonic regurgitation. Pericardium Normal pericardium without effusion. Aorta Normal aortic root dimension. CONCLUSIONS LVEF 55% No obvious regional wall motion abnormality Normal RV size and systolic function Mild mitral regurgitation Mild tricuspid regurgitation No pericardial effusion Previewed by: Dr Alexander Vasques (Electronically Signed) Final Date: 16 August 2024 17:22
== END | disposition home or self-care (01) ==
LOC: RADECHMAIN 16:14
PROVIDERS: ATTEND Internal Medicine Geriatric Medicine
DX: I08.1 Rheumatic disorders of both mitral and tricuspid valves (principal); R55 Syncope and collapse
CPT/HCPCS: 93306

== ENCOUNTER → 2024-08-28 | Outpatient (CLI) | payer OTHER ==
[2024-08-28 14:58] LABS: Basophils # (A) 0.06 X 10*3/uL (0.00-0.10); Eosinophils # (A) 0.07 X 10*3/uL (0.04-0.35); Eosinophils % (A) 1.2 %; HCT 34.2 % (37.2-46.3); HGB 10.9 g/dL (12.0-15.0); Lymphocytes # (A) 1.81 X 10*3/uL (0.90-5.00); Lymphocytes % (A) 30.7 %; MCH 26.8 pg (27.0-32.0); MCHC 31.9 g/dL (32.0-37.0); Mean Platelet Volume 11.2 FL (9.5-12.2); Monocytes # (A) 0.42 X 10*3/uL (0.20-1.00); Monocytes % (A) 7.1 %; NRBC Per 100 WBC 0 X 10*3/uL (0.00-0.01); Neutrophils # (A) 3.52 X 10*3/uL (1.80-7.70); Neutrophils % (A) 59.8 %; Platelet Count 252 X 10*3/uL (140-440); RBC 4.07 X 10*6/uL (4.10-5.20); RDW 15.3 % (11.5-14.5); WBC 5.89 X 10*3/uL (4.50-10.00)
[2024-08-28 15:17] LABS: ALT 41 U/L (8-44); AST 23 U/L (13-35); Albumin 4.3 g/dL (3.8-4.9); Albumin/Globulin Ratio 1.54 Ratio (1.60-3.17); Alkaline Phosphatase 54 U/L (41-126); Blood Urea Nitrogen 8.4 mg/dL (9.0-27.0); Calcium 9.6 mg/dL (8.7-10.3); Carbon Dioxide 23.2 mmol/L (21.6-31.8); Chloride 106 mmol/L (96-109); Globulin 2.8 g/dL (1.6-3.3); Glucose 93 mg/dL (70-110); Potassium 4.8 mmol/L (3.5-5.5); Sodium 139 mmol/L (135-145); Total Bilirubin 0.3 mg/dL (0.3-1.2); Total Protein 7.1 g/dL (6.2-8.2)
== END | disposition home or self-care (01) ==
LOC: LABWHC1 11:09
PROVIDERS: ATTEND Internal Medicine Geriatric Medicine
DX: L40.0 Psoriasis vulgaris (principal)
CPT/HCPCS: 36415; 80053; 85025; 86480

== ENCOUNTER → 2024-08-29 | Outpatient (CLI) | payer OTHER ==
--- NOTE | 2024-08-29 20:27 | MR ---
EXAMINATION TYPE: MR lumbar spine wo con DATE OF EXAM: 08/29/2024 5:43 PM COMPARISON: None. CLINICAL INDICATION: Female, 29 years old with history of M54.50, sharp pain in middle of back someti mes. low back pain. TECHNIQUE: Multiplanar, multisequence images of the lumbar spine were acquired. IV Contrast: mL (None, if empty) FINDINGS: Cord ends at the L1 level. L5-S1: No focal disc herniation or significant disc bulge. No spinal canal stenosis. Neural foramen are patent. L4-L5: No focal disc herniation or significant disc bulge. No spinal canal stenosis. Neural foramen are patent. L3-L4: No focal disc herniation or significant disc bulge. No spinal canal stenosis. Neural foramen are patent. L2-L3: No focal disc herniation or significant disc bulge. No spinal canal stenosis. Neural foramen are patent. L1-L2: No focal disc herniation or significant disc bulge. No spinal canal stenosis. Neural foramen are patent. T12-L1: No focal disc herniation or significant disc bulge. Some minimal disc space narrowing is pre sent. Mild disc desiccation is present. Minimal bulge is present with anterior thecal sac contact. N o spinal canal stenosis. Neural foramen are patent. Some mild facet hypertrophy is present L1-2 through L5-S1 this has very minimal posterior lateral the esperanza sac compression without spinal canal stenosis. IMPRESSION: 1. No suspicious lumbar spine abnormality. 2. Mild degenerative disc changes present at T12-L1. [facility], Workstation: [facility], 08/29/2024 8:25 PM
== END | disposition home or self-care (01) ==
LOC: RADMRIMAIN 16:56
PROVIDERS: ATTEND Internal Medicine Geriatric Medicine
DX: M51.360 Other intervertebral disc degeneration, lumbar region with discogenic back pain only (principal)
CPT/HCPCS: 72148